=== PATIENT | female | born 1950 | race Caucasian/White ===

== ENCOUNTER → 2017-10-23 14:11 | Outpatient (CLI) | payer MEDICARE, SELFPAY ==
[2017-10-23 16:01] LABS: Absolute Neutrophil Count 4.1 X10^3/uL (2.0-7.7); Basophil# 0.02 X10^3/uL; Basophil% 0.4 % (0-1); Eosinophil# 0.04 X10^3/uL; Eosinophils% 0.7 % (0-5); Hematocrit 39.9 % (37-47); Mean Corp Hgb Conc 32.6 g/gl (32-36); Mean Corpuscular Hgb 30.9 pg (27.0-32.0); Mean Corpuscular Volume 94.8 fL (81-99); Mean Platelet Vol. 10.9 fl (6.2-12.0); Monocyte# 0.37 X10^3/uL; Monocyte% 6.7 % (0-10); Neutrophil # 4.12 X10^3/uL (2.7-7.7); Platelet Count 224 K/mm3 (150-450); RBC Distribution Width CV 13.9 % (11.6-14.6); RBC Distribution Width SD 46.1 fl (35.1-43.9); Red Blood Count 4.21 M/mm3 (4.2-5.4); White Blood Count 5.6 K/mm3 (4.4-11.0)
[2017-10-23 16:04] LABS: POSITIVE COUNT NO; POSITIVE DIFFERENTIAL NO; POSITIVE MORPHOLOGY NO
[2017-10-23 16:19] LABS: ALB/GLOB Ratio 1.2 RATIO (0.9-2.4); AST(SGOT) 17 U/L (15-37); Alanine Aminotransfer ALT/SGPT 24 U/L (13-56); Albumin, Serum 3.9 g/dL (3.2-5.0); Alkaline Phosphatase 71 U/L (45-117); Anion Gap 7 (5-15); BUN 15 mg/dL (7-18); BUN/Creat Ratio 14.7 RATIO (10-20); Calcium,Total 8.8 mg/dL (8.5-10.1); Chloride 104 mmol/L (98-107); Creatinine, Serum 1.02 mg/dL (0.55-1.02); EST Glomerular Filtration Rate 57 mL/min (>60); Est Glom Filt Rate - Afr Amer 69 mL/min (>60); Globulin 3.3 g/dL (2.2-4.2); Glucose 88 mg/dL (74-106); Magnesium 2.5 mg/dL (1.6-2.6); Potassium 4.3 mmol/L (3.5-5.1); Protein, Total 7.2 g/dL (6.4-8.2); Sodium Level 141 mmol/L (136-145); Thyroid Stim Hormone (TSH) 2.71 uIU/mL (0.358-3.74)
== END ==
PROVIDERS: Visit Provider Family Medicine
DX: R06.01 Orthopnea (principal); R00.2 Palpitations; R06.00 Dyspnea, unspecified
CPT/HCPCS: 36415; 80053; 83735; 84443; 85025

== ENCOUNTER → 2017-11-07 08:48 | Outpatient (CLI) | payer MEDICARE, SELFPAY | PROVIDERS: Family Provider Family Medicine; PCP Family Medicine; Visit Provider Family Medicine | DX: R00.2 Palpitations (principal); R06.01 Orthopnea; R06.00 Dyspnea, unspecified | CPT/HCPCS: 93225; 93226 ==

== ENCOUNTER → 2018-02-01 13:30 | Outpatient (CLI) | payer MEDICARE, SELFPAY ==
--- NOTE | 2018-02-01 13:35 | RAD_ITS ---
STUDY: X-RAY CHEST REASON FOR EXAM: Female, 67 years old. Dyspnea. TECHNIQUE: PA and lateral views of the chest. COMPARISON: December 14, 2013 FINDINGS: The lungs are clear and expanded. There is no demonstrated pleural abnormality. Normal size heart. Normal mediastinum and teresa. Normal visualized pulmonary arteries. There is atherosclerotic calcification of the aortic arch. Normal visualized thoracic spine. Normal visualized ribs, clavicles, and shoulders. There is no demonstrated abnormality of the visualized soft tissue structures of the upper abdomen. RAD/Chest PA and Lateral IMPRESSION: No acute cardiopulmonary process. Electronically Signed: Antonella Forrest MD at 16:51 EDT Tel , Service support ,
[2018-02-01 15:42] LABS: Absolute Lymphocyte Count 0.75 X10^3/ul (0.83-4.51); Absolute Neutrophil Count 3.4 X10^3/uL (2.0-7.7); Basophil# 0.02 X10^3/uL; Basophil% 0.4 % (0-1); Eosinophil# 0.04 X10^3/uL; Eosinophils% 0.9 % (0-5); Hematocrit 41.7 % (37-47); Hemoglobin 13.6 g/dl (12.0-15.0); Lymphocyte # 0.75 X10^3/ul (4.0); Lymphocyte % 16.2 % (19-41); Mean Corp Hgb Conc 32.6 g/gl (32-36); Mean Corpuscular Hgb 30.9 pg (27.0-32.0); Mean Corpuscular Volume 94.8 fL (81-99); Mean Platelet Vol. 10.7 fl (6.2-12.0); Monocyte# 0.42 X10^3/uL; Monocyte% 9.1 % (0-10); Neutrophil # 3.38 X10^3/uL (2.7-7.7); Neutrophil % 73.2 % (47-70); Platelet Count 249 K/mm3 (150-450); RBC Distribution Width CV 13.4 % (11.6-14.6); RBC Distribution Width SD 44.8 fl (35.1-43.9); White Blood Count 4.6 K/mm3 (4.4-11.0)
[2018-02-01 15:45] LABS: POSITIVE COUNT NO; POSITIVE DIFFERENTIAL NO; POSITIVE MORPHOLOGY NO
[2018-02-01 16:02] LABS: ALB/GLOB Ratio 1.1 RATIO (0.9-2.4); AST(SGOT) 9 U/L (15-37); Alanine Aminotransfer ALT/SGPT 19 U/L (13-56); Alkaline Phosphatase 73 U/L (45-117); Anion Gap 7 (5-15); BUN 19 mg/dL (7-18); BUN/Creat Ratio 20.2 RATIO (10-20); Calcium,Total 8.8 mg/dL (8.5-10.1); Chloride 106 mmol/L (98-107); Creatinine, Serum 0.94 mg/dL (0.55-1.02); EST Glomerular Filtration Rate 63 mL/min (>60); Est Glom Filt Rate - Afr Amer 76 mL/min (>60); Globulin 3.5 g/dL (2.2-4.2); Glucose 94 mg/dL (74-106); Potassium 3.8 mmol/L (3.5-5.1); Protein, Total 7.5 g/dL (6.4-8.2); Sodium Level 141 mmol/L (136-145)
[2018-02-01 16:39] LABS: D-Dimer Quantitative (DVT/PE) < 0.27 FEU/ug/m (0.27-0.49)
== END ==
PROVIDERS: Family Provider Family Medicine; PCP Family Medicine; Referring Provider Family Medicine; Visit Provider Family Medicine
DX: R06.00 Dyspnea, unspecified (principal); R07.89 Other chest pain
CPT/HCPCS: 36415; 71046; 80053; 84484; 85025; 85379

== ENCOUNTER 2018-02-07 12:21 | Emergency (ER) | payer MEDICARE, SELFPAY ==
[2018-02-07 12:27] VITALS: BP 142/83; PULSE 69; RESP 20; TEMP 36.6; O2SAT 100; BMI 24.7
[2018-02-07 13:03] VITALS: BP 146/89; PULSE 72; RESP 14; O2SAT 100
--- NOTE | 2018-02-07 13:20 | EKG12_ITS ---
Test Reason : CP Blood Pressure : / mmHG Vent. Rate : 078 BPM Atrial Rate : 078 BPM P-R Int : 168 ms QRS Dur : 088 ms QT Int : 394 ms P-R-T Axes : 077 061 072 degrees QTc Int : 449 ms Normal sinus rhythm Normal ECG Confirmed by POOJA GERARD, SKYLAR ([id number]), news videotape editor HIRAM JORDAN ([id number]) on 02/12/2018 3:51:47 PM Referred By: RIANA Confirmed By:SKYLAR PATTON MD
[2018-02-07] MEDS: LORazepam 0.5 MG Tablet PO (13:31)
--- NOTE | 2018-02-07 13:35 | RAD_ITS ---
STUDY: X-RAY CHEST REASON FOR EXAM: Female, 67 years old. Shortness of breath intermittently. Worse with activity. TECHNIQUE: PA and lateral chest COMPARISON: 02/01/2018. FINDINGS: The lungs are clear and expanded. Normal cardiomediastinal silhouette, teresa and pleural margins. No acute osseous or upper abdominal process. Postoperative changes of the right shoulder, rotator cuff anchor screws present. Mild thoracal lumbar scoliosis. Mild thoracic kyphosis. Mild midthoracic disc degeneration. RAD/Chest PA and Lateral IMPRESSION: No acute cardiopulmonary process. Electronically Signed: Anthony Lebron, at 13:51 EDT Tel , Service support ,
[2018-02-07 13:45] LABS: Hematocrit 40.6 % (37-47); Hemoglobin 13.8 g/dl (12.0-15.0); Mean Corpuscular Hgb 31.4 pg (27.0-32.0); Mean Corpuscular Volume 92.5 fL (81-99); Mean Platelet Vol. 10.4 fl (6.2-12.0); Platelet Count 241 K/mm3 (150-450); RBC Distribution Width CV 13.1 % (11.6-14.6); RBC Distribution Width SD 43.2 fl (35.1-43.9); Red Blood Count 4.39 M/mm3 (4.2-5.4); Scan Indicated on CBC? Y/N NO; White Blood Count 6.1 K/mm3 (4.4-11.0)
[2018-02-07 13:56] LABS: Anion Gap 9 (5-15); BUN 15 mg/dL (7-18); BUN/Creat Ratio 17.1 RATIO (10-20); Chloride 108 mmol/L (98-107); Creatinine, Serum 0.88 mg/dL (0.55-1.02); EST Glomerular Filtration Rate 68 mL/min (>60); Est Glom Filt Rate - Afr Amer 82 mL/min (>60); Estimated Creatinine Clearance 47.72 ml/min; Glucose 92 mg/dL (74-106); Potassium 3.7 mmol/L (3.5-5.1); Sodium Level 142 mmol/L (136-145)
[2018-02-07 14:26] VITALS: BP 130/74; PULSE 75; RESP 14; O2SAT 98
--- NOTE | 2018-02-07 14:57 | ED.DCSUM_ITS ---
- ER Visit Summary Date of Service: 02/07/18 Chief Complaint: Shortness of breath History of Present Illness: The patient is a 67 F who states that for the past 2-3 weeks he has had some shortness of breath however it was acutely worse today. She states that she has been sleeping in a chair having difficulty laying back. She states that last she was at her doctor's office and was started on antibiotic as well as a nasal spray for some sinus issues. She is scheduled for a stress test on Monday. states she has very poor sleep and at times she is up hyperventilating and she concurs with that statement stating that time she needs to think about her breathing in order to slow it down. She does admit to having some anxiety and wonders if that is a part of it. Patient also states that she wakes up at night gasping for air. She does state that she is a snorer. Physical Examination: Afebrile vital signs are stable Gen: Well-nourished well-developed Head: Normocephalic atraumatic Eyes: Perrl EOMI ENT: TMs clear no rhinorrhea moist mucous membranes Neck: Supple no lymphadenopathy no JVD nontender CVS: Regular rate rhythm no murmurs normal S1-S2 Respiratory: No distress clear to auscultation bilaterally chest nontender Abdomen: Soft nontender nondistended normal bowel sounds no masses Back: Nontender Extremity: Nontender no edema Skin: Normal color no rash Neuro: alert orientated ?3 CN II-XII intact normal strength sensation reflexes gait cerebellar Psych: Anxious affect Test Results: EKG shows a normal sinus rhythm at a rate of 78. CBC BMP troponin essentially negative. Emergency Department Course and Treatment: Patient received a oral dose of Ativan and states that dyspnea is improved. She has stress test approved and scheduled for Monday. She may also benefit from sleep study. I will write for a few Ativan to carry her from now until her next doctor's appointment. Impression: 1. Dyspnea 2. Anxiety This note was generated with [employer] dictation software. It may contain incorrect words, spelling, and punctuation that were not noted in review of the chart prior to signing ED Disposition - Plan for ED Patient: Disposition: Home or Assisted Living Chief Complaint: Shortness of Breath Instructions: What Are Snoring and Sleep Apnea?, ED Dyspnea Shortness of Breath Prescriptions: Lorazepam [Ativan] 0.5 mg PO BID PRN PRN 7 Days #14 tab PRN Reason: Anxiety Referrals: Aakash Matt [Primary Care Provider] - As soon as possible Additional Instructions: Keep your stress test appointment on Monday
[2018-02-07 15:15] LABS: D-Dimer Quantitative (DVT/PE) < 0.27 FEU/ug/m (0.27-0.49)
[2018-02-07 15:28] VITALS: BP 135/70; PULSE 75; RESP 14; O2SAT 98
[2018-02-07 15:46] VITALS: BP 128/75; PULSE 80; RESP 14; O2SAT 98
--- NOTE | 2018-02-08 10:12 | CM.ED ---
ED CALLBACK: Follow-up call placed to patient. No answer. Voicemail left with return contact information.
== END 2018-02-07 15:53 | disposition home or self-care (01) ==
PROVIDERS: Emergency Provider Emergency Medicine; Family Provider Family Medicine; PCP Family Medicine
DX: R06.02 Shortness of breath (principal); R06.00 Dyspnea, unspecified; F41.9 Anxiety disorder, unspecified
CPT/HCPCS: 71046; 80048; 84484; 85027; 85379; 93005; 99285; A4216

== ENCOUNTER → 2018-02-09 06:49 | Outpatient (CLI) | payer MEDICARE, SELFPAY ==
--- NOTE | 2018-02-09 11:08 | STRESSREP ---
Stress Test Report Exercise myocardial perfusion stress test. 67-year-old lady with a history of chest pain. Stress protocol. Resting EKG demonstrates normal sinus rhythm with rate of 68 beats minute normal intervals and noted resting blood pressure 120/78 mmHg. The patient exercised according to regular Александр protocol for total duration of 7 minutes and 16 seconds. The maximum heart rate attained was 153 bpm which was 101% maximum predicted heart rate the maximum workload was 8.9 metabolic equivalents. At rest there were no ST or T wave changes noted suggest ischemia peak exercise upsloping ST changes only were noted with no meet the criteria for ischemia. The resting blood pressure 124/70 with a peak blood pressure 144/74. No clinical angina was noted moderate dyspnea was noted. Myocardial perfusion protocol. 11.3 mCi of technetium 99m sestamibi was injected at rest. Patient exercised according to regular Александр protocol for 7 minutes and 16 seconds. At peak exercise 32.4 mCi of technetium 99m sestamibi was injected stress images were obtained stress and rest images were reconstructed and compared in the short axis vertical long horizontal long axis. Gated images were also obtained Perfusion SPECT analysis: Review of the stress images demonstrate normal uptake of tracer noted in all areas of the myocardium. The resting images similarly demonstrate normal uptake of tracer noted in all areas of the myocardium. No areas of reversibility are noted suggest ischemia. No previous infarct is noted. Gated SPECT analysis. The gated ejection fraction is noted to be 77%. Conclusion: Normal exercise myocardial perfusion stress test at a moderate workload. No clinical angina noted. Preserved ejection fraction.
== END ==
PROVIDERS: Family Provider Family Medicine; PCP Family Medicine; Referring Provider Family Medicine; Visit Provider Family Medicine
DX: R06.00 Dyspnea, unspecified (principal); R07.89 Other chest pain
CPT/HCPCS: 78452; 93017; A9500; A4216; J2785

== ENCOUNTER → 2018-04-02 10:14 | Outpatient (CLI) | payer MEDICARE, SELFPAY ==
--- NOTE | 2018-04-02 10:21 | US_ITS ---
STUDY: ABDOMINAL ULTRASOUND REASON FOR EXAM: Female, 67 years old. Abdominal discomfort TECHNIQUE: Transabdominal ultrasound was performed with real-time and static ford scale imaging. TECHNICAL QUALITY: Adequate. COMPARISON: None. FINDINGS: Liver: The liver measures 13.2 cm. There is normal echogenicity of the liver. The bile ducts are within normal limits. There is hepatic color flow. The direction of portal flow is hepatopetal. There is a hyperechoic 2 cm likely hemangioma Portal vein measurement: Gallbladder: Normal distended gallbladder. The gallbladder wall measures 2.3 mm. There is a negative sonographic Mcmillan's sign. There is no pericholecystic fluid. There are no gallstones. Common Bile Duct (C.B.D.): The common bile duct measures 2.5 mm. Pancreas: Normal size of the head, body and tail of the pancreas. There is normal echogenicity of the pancreas. There is no demonstrated pancreatic mass or cyst. Spleen: Normal size of the spleen. The spleen measures 10.0 cm. Right Kidney: Normal size of the right kidney. The right kidney measures 9.3 x 4.7 x 4.0 cm. Normal renal cortex. The right cortex measures 1.3 cm. There is no demonstrated renal mass or cyst. There is no right hydronephrosis. Left Kidney: Normal size of the left kidney. The left kidney measures 9.9 x 4.8 x 5.2 cm. Normal renal cortex. The left cortex measures 1.9 cm. 2 simple cysts measuring up to 2.5 cm in greatest dimension. There is either mild left hydronephrosis or parapelvic cyst. Aorta: Tapers normally, atherosclerotic plaque noted. I.V.C.: The IVC is patent. There is no ascites. US/Abdomen Complete IMPRESSION: 2 cm hyperechoic nodule within the liver, likely hemangioma. Mild left hydronephrosis versus parapelvic cyst Simple left renal cysts Sonographically normal gallbladder Electronically Signed: Franky Pimentel MD at 13:00 EST , Service support ,
--- OUTSIDE RECORDS SUMMARY | 2018-05-26 15:10 | XMS RPT_ITS ---
:1950 Author Organization OHIP Care Team Providers Name Role Phone MARCUS CONRAD Referring Unavailable MARCUS CONRAD Attending Unavailable MARCUS CONRAD Referring Unavailable RADHA CURRIE Admitting Unavailable RADHA CURRIE Attending Unavailable MARCUS CONRAD Referring Unavailable Aakash Matt Attending Unavailable Aakash Matt Attending Unavailable Aakash Matt Referring Unavailable Aakash Matt Primary Care Unavailable Chaz Charles Attending Unavailable Aakash Matt Attending Unavailable Aakash Matt Referring Unavailable Aakash Matt Primary Care Unavailable Aakash Matt Primary Care Unavailable Chris Gonsalez Attending Unavailable Aakash Matt Attending Unavailable Aakash Matt Referring Unavailable Shaka Aakash Primary Care Unavailable Melvin, Chaz Attending Unavailable Aakash Matt Referring Unavailable ShakaAakash eldridge Attending Unavailable Shaka, Aakash Referring Unavailable Shaka, Aakash Primary Care Unavailable PROBLEMS PROBLEMS DATE TYPE CONDITION / CODE ATTENDING STATUS SOURCE 04/18/2018 Active Encounter for RADHA CURRIE Active [facility] screening for [facility] malignant neoplasm Repository of colon / Z12.11(ICD-10) 03/01/2018 Unknown R06.09 - Other Melvin, Chaz Active [facility] forms of dyspnea / Community R06.09(ICD-10) Hospital Repository 02/07/2018 Unknown F41.9 - [place] [facility] disorder, [facility] unspecified / Hospital F41.9(ICD-10) Repository 02/01/2018 Unknown R06.00 - Dyspnea, Aakash Matt Active [facility] unspecified / Community R06.00(ICD-10) Hospital Repository 02/01/2018 Unknown R07.89 - Other Aakash Matt Active [place] chest pain / Community R07.89(ICD-10) Hospital Repository 01/16/2018 Active Encounter for NA Active [facility] screening [facility] mammogram for Repository malignant neoplasm of breast / Z12.31(ICD-10) 01/19/2018 Unknown R00.2 - Aakash Matt Active [facility] Palpitations / Community R00.2(ICD-10) Hospital Repository 10/24/2017 Unknown R06.01 - Orthopnea Aaaksh Matt Active [facility] / R06.01(ICD-10) [facility] Hospital Repository PROCEDURES PROCEDURES No Procedure Records FoundRESULTS RESULTS NURSING PROG Observed: 04/18/2018 Status: COMPLETED Source: [place] 9:14 AM [facility] REPOSITORY HNO ID: [id number] Author: Flower Palacios RN Service: (none) Author Type: Registered Nurse Type: Nursing Progress Note Filed: 04/18/2018 9:14 AM Note Text: Patient did not experience a fall prior to discharge. Patient did not experience a burn prior to discharge. Flower Palacios RN NURSING PROG Observed: 04/18/2018 Status: COMPLETED Source: [place] 9:07 AM [facility] REPOSITORY HNO ID: [id number] Author: Crystal (Rn) Pelfrey, RN Service: (none) Author Type: Registered Nurse Type: Nursing Progress Note Filed: 04/18/2018 9:08 AM Note Text: Patient now tolerating snack without problems. Flower Palacios RN PT ED Observed: 04/18/2018 Status: COMPLETED Source: [place] 9:00 AM [facility] REPOSITORY HNO ID: [id number] Author: Flower Palacios RN Service: (none) Author Type: Registered Nurse Type: Patient Education Filed: 04/18/2018 9:00 AM Note Text: POST OP LEARNING RESPONSE INSTRUCTION PROVIDED TO: Patient and Spouse METHOD OF INSTRUCTION: Individual instruction Written instruction - handouts Verbal instruction PATIENT / FAMILY RESPONSE: Verbalizes understanding of: EQUIPMENT USE-Correct use of Equipment MEDICAL REGIMEN-Importance of following prescribed medical regimen PAIN MANAGEMENT-Effective strategies to manage pain in addition to pain medication PHYSICAL RESTRICTIONS-Physical restrictions and recommendations after discharge from the hospital POST-PROCEDURE INSTRUCTIONS-Correct actions to take to reduce post procedure complications PATIENT SAFETY PRINCIPLES SYMPTOM MANAGEMENT-Correct actions to take to manage symptoms associated with his/her disease/illness WORSENING CONDITION-Signs and symptoms of a worsening condition that warrant a call to the physician FOLLOW-UP PLAN: Patient instructed to call with any further issues Follow up phone call. Contact information given. SUPPLEMENTAL MATERIAL: AVS REFERRAL (RECOMMENDATION): None Electronically Signed By: Flower Palacios RN In Department: AMBULATORY SURGERY NURSING PROG Observed: 04/18/2018 Status: COMPLETED Source: [place] 8:59 AM [facility] REPOSITORY HNO ID: [id number] Author: Flower Palacios RN Service: (none) Author Type: Registered Nurse Type: Nursing Progress Note Filed: 04/18/2018 8:59 AM Note Text: Patient sitting up in bed tolerating drink without problems. Flower Palacios RN NURSING PROG Observed: 04/18/2018 Status: COMPLETED Source: [place] 8:31 AM [facility] REPOSITORY HNO ID: [id number] Author: Flower Palacios RN Service: (none) Author Type: Registered Nurse Type: Nursing Progress Note Filed: 04/18/2018 8:36 AM Note Text: Patient arrived to PACU, on left side, abdomen soft. Patient resting comfortably. Flower Palacios RN NURSING PROG Observed: 04/18/2018 Status: COMPLETED Source: [place] 8:28 AM [facility] REPOSITORY HNO ID: [id number] Author: Dede Perez RN Service: Nursing Author Type: Registered Nurse Type: Nursing Progress Note Filed: 04/18/2018 8:28 AM Note Text: Patient did not experience a fall within the Intraoperative area. Patient did not experience a burn within the Intraoperative area. Dede Perez RN NURSING PROG Observed: 04/18/2018 Status: COMPLETED Source: [place] 8:01 AM [facility] REPOSITORY HNO ID: [id number] Author: Flower SmithRnDebra Palacios RN Service: (none) Author Type: Registered Nurse Type: Nursing Progress Note Filed: 04/18/2018 8:01 AM Note Text: Patient did not experience a fall within the Preoperative area. Patient did not experience a burn within the Preoperative area. [facility] PRE-OP NURSING HAND OFF NOTE SBAR Hand off given to Dede Perez RN. Hand off was communicated verbally and at the patient's bedside and all questions were answered. LATRICIA Peñaloza RN PT ED Observed: 04/18/2018 Status: COMPLETED Source: [place] 7:47 AM [facility] REPOSITORY HNO ID: [id number] Author: Flower SmithRnDebra Palacios RN Service: (none) Author Type: Registered Nurse Type: Patient Education Filed: 04/18/2018 7:49 AM Note Text: PRE OP LEARNING ASSESSMENT PROCEDURE/SURGERY: GI PROCEDURES: Colonoscopy READINESS TO LEARN COGNITIVE ABILITY: Alert and oriented MOTIVATION TO LEARN: Eager Interested FAMILY SUPPORT: High - Very involved in pt care PATIENT LEARNS BEST BY: Individual Instruction Written Instruction - Hand-outs Verbal Instruction Multiple Methods FACTORS AFFECTING LEARNING: None PHYSICAL LIMITATIONS AFFECTING LEARNING: None Electronically Signed By: Flower Palacios RN In Department: AMBULATORY SURGERY HISTORY PHYSICAL Observed: 04/17/2018 Status: COMPLETED Source: [place] 8:45 PM [facility] REPOSITORY HNO ID: [id number] Author: Radha Currie Service: (none) Author Type: Physician Type: HANDP Filed: 04/18/2018 7:53 AM Note Text: HISTORY AND PHYSICAL ? Cindy Sosa 1950 ? ? CHIEF COMPLAINT: personal history of colon polyps, family history of colon cancer ? HPI: 67 y/o WF s/p colonoscopy in 2013 presents for follow up surveillance colonoscopy for family history of colon cancer and personal history of colon polyps. Father of colon cancer at age 86. No other family members with colon cancer. Denies blood in stools. Denies changes in bowel habits. Denies abdominal pain. ? ? PAST MEDICAL HISTORY Disorder of Bone and Cartilage, Unspecified Benign Neoplasm of Colon Family History of Malignant Neoplasm of Gastrointestinal Tract ? ? PAST SURGICAL HISTORY Total Abdom Hysterectomy Past Surgical History of (FOOT SURGERY, Both) DANDc, Diag and/Or Therapeutic (Dilation AND curettage) Colonoscop W/ Or W/O [facility] Spec - 08/17/07 (Colonoscopy) ? ? Current outpatient prescriptions:nitrofurantoin monhydrate and macrocrystal (MACROBID) 100 mg capsule, Take 1 capsule by mouth. Take one by mouth after coitus., Disp: 30 capsule, Rfl: 1; peg 3350-Electrolytes 236-22.74-6.74 gram suspension, Take 4,000 mL by mouth one time only for 1 dose. Refer to printed prep instructions from your doctor., Disp: 1 Bottle, Rfl: 0 ? ALLERGIES: Bactrim ? 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 Tobacco Use: Never Alcohol Use: Yes (Occasionally) Drug Use: No Sexual Activity: Patient is sexually active, with male partner(s). No reported control method. ?? FAMILY HISTORY Mother: Heart (TRIPLE BYPASS), Osteoporosis, other (Dementia) Father: Colon Cancer, Heart Other: Breast Cancer (MATERNAL COUSIN) ? ? REVIEW OF SYMPTOMS: General: The patient denies fatigue, denies weight loss, denies weight gain, denies feeling hot, and denies feelings of cold. Eyes: The patient denies glaucoma, denies eye injury/surgery, wears glasses or contacts. Ear/Nose/Throat: The patient denies allergies, denies hayfever, denies ear infections, and denies bloody noses. Cardiovascular: The patie nt denies chest pain, denies heart disease, denies high blood pressure, denies high cholesterol, and denies poor circulation. Respiratory: The patient denies tuberculosis, denies pneumonia, denies frequent cough, denies shortness of breath, and denies coughing up blood. Gastrointestinal: The patient denies difficulty swallowing, denies acid reflux, denies ulcers, denies jaundice/hepatitis, denies gallbladder problems, jocelyn es vomiting, denies black or tarry stools, denies hemorrhoids, denies bleeding from rectum, denies diverticulitis, denies constipation, denies diarrhea, denies loss of stool control, and denies hernias. Kidney/Bladder: The patient denies kidney stones, notes urine infections, and denies bloody urine. Skin: The patient denies a history of skin cancer, denies bleeding/changing moles, and denies a history of skin rash. Neurologic: The patient denies a history of epilepsy/convulsions, denies headaches, denies head/spinal injuries, and denies stroke/TIA. Psychiatric: The patient denies psychiatric medications, denies depression, and denies voices. Endocrine: The patient denies thyroid disorders, denies diabetes, and notes hormonal problems. Hematologic: The patient denies a history of bruising, denies bleeding, and denies anemia. Infections: The patient notes a history of measles and mumps, notes rheumatic fever, and denies sexually transmitted diseases. Musculoskeletal: The patient denies back pain/injury, denies back problems, denies sciatica, notes knee/foot trouble, denies arthritis, or denies gout. ? PHYSICAL EXAMINATION: ?General: The patient is 62 year old female, well nourished, well hydrated in no acute distress. The patient is oriented to time, place, and person. ?VITALS: Blood pressure 122/70, pulse 60, height 157.5 cm (5' 2), weight 61.236 kg (135 lb). Body mass index is 24.69 kg/(m2). ?HEENT: Normal cephalic, ataumatic, pupils are equally round, sclera are anicteric, mucous membranes are moist, oropharynx is clear. Neck has no masses, asymmetry or lymphadenopathy. Thyroid is unremarkable. ?Respiratory: Clear to auscultation and percussion. Normal respiratory excursion and pattern. ?Cardiac: Examination is regular rate and rhythm. ?Abdominal exam: Soft, nontender, with no palpable masses. No hepatosplenomegaly. No palpable hernias. ?Rectal exam: exam deferred ?Extremities: no clubbing, cyanosis or edema. No adenopathy. ?? Impression: personal history of colon polyps, family history of colon cancer Discussion/Plan/Recommendations: I have discussed the above with the patient. I have offered colonoscopy I have explained the procedure to the patient. I have counseled the patient as to the risks of the procedure, including but not limited to: infection, bleeding, injury to any intrabdominal organs such as liver/spleen, perforation of the GI tract, inability to complete the procedure, complications of anesthesia, etc. ? the patient understands. The patient wishes to proceed. I have answered all questions to the patient?s satisfaction and the patient has no further questions. PROGRESS Observed: 04/09/2018 Status: COMPLETED Source: [place] 12:29 PM [facility] REPOSITORY HNO ID: [id number] Author: Shruthi Thomas Service: (none) Author Type: (none) Type: Progress Notes Filed: 04/09/2018 12:29 PM Note Text: Scheduled patient for open access Colonoscopy with Dr. Currie on 04/18/2018, mailing colonoscopy instructions Shruthi Thomas HOSP Observed: 04/09/2018 Status: COMPLETED Source: [place] 12:00 AM [facility] REPOSITORY Patient:Cindy Sosa MRN: <[id number]> Height:5' 2.205(1.58 m) Weight:130 lb 15.3 oz (59.4 kg) Outpatient Medications as of 04/18/18: nitrofurantoin monhydrate and macrocrystal (MACROBID) 100 mg capsule Admission/Clinic Administered Medications as of 04/18/18: lactated ringers infusion Problem List: Family history of malignant neoplasm of gastrointestinal tract [Z80.0] Osteopenia [M85.80] Recurrent UTI [N39.0] Personal history of colonic polyps [Z86.010] Family history of colon cancer [Z80.0] Plantar fasciitis [M72.2] Allergies: Bactrim [Sulfamethoxazole-Trimethoprim] Hydrocodone Date Verified: 04/18/18 Lab Values No results within the last 30 days for the following basenames: K,HCT Progress Notes (AMMONIA TECHNICIAN [facility]): Tesas Portillo Ma 04/06/2018 9:04 AM Signed 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 Marcus Kaye MD 04/06/2018 9:04 AM Signed Cindy Sosa is a 67 year old who presents for her annual gynecologic exam without complaints. Being work up by PCP for breathing difficulty and bloating. Postmenopausal: Yes FREDERICK/BSO HRT use: after hysterectomy- not currently History of abnormal pap: No Last mammogram: 2017 normal History of abnormal mammogram: No Sexually active: Yes History of STDS: None Patient concerns for STD exposure: No. Pain with intercourse: No Postcoital bleeding: No Hot flashes: No Night sweats: No Vaginal dryness: Yes Exercise: walking Diet: balanced Obstetric History T0 L0 SAB1 TAB0 Ectopic0 Multiple0 Live Births0 Comment: Pt has one adopted child. PAST MEDICAL HISTORY Diagnosis Date - Benign neoplasm of colon - Disorder of bone and cartilage, unspecified - Family history of malignant neoplasm of gastrointestinal tract PAST SURGICAL HISTORY Procedure Laterality Date - COLONOSCOP W/ OR W/O [facility] SPEC 08/17/07; 10/2012 Colonoscopy - DANDC, DIAG AND/OR THERAPEUTIC Dilation AND curettage - PAST SURGICAL HISTORY OF FOOT SURGERY, Both - ROTATOR CUFF REPAIR - TOTAL ABDOM HYSTERECTOMY FAMILY HISTORY Problem Relation Age of Onset - Heart Mother TRIPLE BYPASS - Osteoporosis Mother - other (Dementia) Mother - Colon Cancer Father - Heart Father - Breast Cancer Other MATERNAL COUSIN SOCIAL HISTORY Social History Substance Use Topics - Smoking status: Never Smoker - Smokeless tobacco: Never Used - Alcohol use Yes Comment: Occasionally REVIEW OF SYSTEMS Abdomen: bloating and slight early satiety - no weight loss Bladder: No dysuria, gross hematuria, urinary frequency, urinary urgency, or incontinence Breast: No breast lumps, nipple d/c, overlying skin changes, redness or skin retraction Allergies and current medication updated:Yes EXAM: BP 106/64 Ht 5' 2.205 (1.58m) Wt 131 lb (59.4kg) BMI 23.80 kg/(m2). GENERAL: pleasant, female in no apparent distress HEENT: Normocephalic, atraumatic, mucus membranes moist and no lesions NECK: Supple, full range of motion, no adenopathy and thyroid normal DERMATOLOGY: Normal, without lesions, non-icteric and non-hirsute BREAST: soft, non-tender, symmetric, no dominant mass, normal nipple-areolar complex, no lymphadenopathy and no nipple discharge ABDOMEN: soft, non-tender and no masses PELVIC: external genitalia normal, normal Bartholin's glands, urethra, [place]'s glands, no vulvar lesions, good vaginal support, physiologic discharge present, normal appearing perineal body and perianal region, atrophic changes BIMANUAL: no adnexal masses, non-tender and uterus surgically absent RECTOVAGINAL: deferred. NEURO: alert and oriented x3,exam grossly non-focal EXTREMITIES: normal ASSESSMENT/PLAN: 1) Health maintenance: Pap/HPV screening no longer needed Mammogram ordered Mammogram up to date Nutrition, exercise and routine health maintenance exams reviewed. Calcium/Vitamin D supplementation information provided. Colon cancer screening: colonoscopy ordered BMD: up to date 2) Follow up one year or sooner as needed MD Marcus Hernandez MD 04/06/2018 8:53 AM Addendum Calcium and Vitamin D Supplementation (from the National Institutes of Health Office of Dietary Supplements 2010) Calcium is required by the body for blood vessel, muscle, hormone and nerve functioning. Most of the body's calcium is stored in the bones and teeth where it supports structure and function. Bone is continuously broken down and reformed. When bone breakdown exceeds formation, especially in postmenopausal women, bone loss can increase the risk of osteoporosis and fractures. In addition to low calcium intake, women who smoke, have a family history of osteoporosis, are thin, or , or who take certain medications such as cancer chemotherapy, seizure mediations and steroids are at increased risk of osteoporosis. The calcium requirements in women change with age. The National Institutes of Health (NIH) recommends: 1000mg elemental calcium for premenopausal women age 19-50 1200mg elemental calcium for postmenopausal women and all women over 50 Milk, yogurt, and cheese are rich natural sources of calcium and are the major food contributors in the [place]. For example, 8oz of milk (whole, lowfat or skim) contains about 300mg calcium, 8oz of yogurt contains 415mg. Nondairy sources include salmon and sardines and vegetables, such as [place] cabbage, kale, and broccoli. Foods fortified with calcium include many fruit juices, tofu and cereals. For more food calcium content information, visit http://ods.od.nih.gov/factsheets/calcium. Calcium supplements come in several different forms. Remember that the recommendations are for millgrams (mg) of elemental calcium which may be less than the total weight of the supplement. The amount of elemental calcium is required to be printed on the label. Calcium carbonate is the least expensive form. It must be taken on a full stomach to be properly absorbed. Some patients may experience gas or constipation. Calcium phosphate and calcium citrate may be taken either with or without food and tend to have less side effects but are generally more expensive. Because of its ability to neutralize stomach acid, calcium carbonate is found in some gexj-fla-veofncp antacid products, such as Tums? and Rolaids?. Depending on its strength, each chewable pill or softchew provides 200 to 400 mg of elemental calcium. The percentage of calcium absorbed depends on the total amount of elemental calcium consumed at one time. Absorption is highest in doses <500mg. So a woman who takes 1,000mg/day of calcium from supplements should split the dose and take 500mg at two separate times during the day. Too much calcium can cause kidney stones, constipation, difficulty absorbing other nutrients and calcium buildup in blood vessels. Women under 50 should not exceed 2500mg/day (2000mg/day for women over 50) of calcium from food and supplements. Excessive alcohol and caffeine intake can inhibit absorption of calcium. Calcium can reduce the absorption of some medications if taken at the same time of day (bisphosphonates, thyroid medication, Phenytoin and other seizure medications, some antibiotics and iron supplements). Vitamin D promotes calcium absorption in the gut and maintains adequate blood levels of calcium and phosphate for normal bone growth and bone remodeling. Vitamin D also helps regulate cell growth as well as nerve, muscle and immune system function. Vitamin D is produced in the skin as a result of ultraviolet sunlight rays and must be altered in the liver and kidney to become its active form. Recommended intake according to the National Institutes of Health is 600 International Units (IU) for girls and women ages 1-70 and 800 IU for women over 70. Very few foods in nature contain vitamin D. The flesh of fatty fish (such as salmon, tuna, and mackerel) and fish liver oils are among the best sources. Small amounts of vitamin D are found in beef liver, cheese, mushrooms and egg yolks. Most people meet at least some of their vitamin D needs through exposure to sunlight. Season, time of day, length of day, cloud cover, smog, skin melanin content, and sunscreen are among the factors that affect UV radiation exposure and vitamin D synthesis. Despite the importance of the sun for vitamin D synthesis, it is prudent to limit exposure of skin to sunlight and avoid tanning beds. UV radiation is a carcinogen responsible for most of the estimated 1.5 million skin cancers that occur annually in the [place]. Lifetime cumulative UV damage to skin is also responsible for some age-associated dryness and other cosmetic changes. In supplements and fortified foods, vitamin D is available in two forms, D2 (ergocalciferol) and D3 (cholecalciferol). The two are equivalent at normal supplement doses. For women who require high supplement doses because of vitamin D deficiency, D3 may work better to raise blood levels. Some medications can prevent proper absorption of Vitamin D. These include laxatives, corticosteroids like prednisone, the seizure drugs phenobarbital and phenytoin, the weight-loss drug orlistat ( Xenical? and AlliTM) and the cholesterol-lowering drug cholestyramine (Questran?, LoCholest?, and Prevalite?). Talk to your doctor about adjusting your recommended daily vitamin D dosage if you take these medications. You should not exceed 4000 mg of vitamin D supplementation daily unless specifically prescribed by your doctor. ACOG Screening Guidelines (2015) The following health screening schedule is recommended by the [place] [employer]ne[employer] (ACOG). Some of these tests may be ordered or performed by your primary care doctor. Pap test screening The pap test looks at cells on the cervix (the opening from the vagina to the uterus) to look for cancer or pre-cancerous changes. These changes are caused by the human papillomavirus (HPV). Studies estimate that half of all women will test positive for this virus within 3 years of starting sexual activity. For young women with a normal immune system, 90% of HPV infections will resolve within 2 years. There is a vaccine available against some forms of HPV. This is recommended for girls and women age 9-26 and is a series of 3 injections over 6 months. Because this vaccine does not protect against all HPV types which can cause cervical cancer, women who received the vaccine still need pap tests. Pap smear screening should be started at age 21. The pap test should be done every 3 years from age 21-29. From age 30-65, pap smears can be done every 5 years if HPV test is negative or every 3 years if HPV testing is not done. For women over the age of 65, ACOG recommends against screening women who have had adequate prior screening and are not otherwise at high risk for cervical cancer. Women who have had a hysterectomy also do not need routine pap smear screening unless the pap smear was done for a cervical cancer or moderate to severe dysplasia. Breast cancer screening Mammogram should be performed every 1-2 years starting at age 40 and every year starting at age 50. Screening may be started earlier depending on family history. Cholesterol screening Lipid panel (cholesterol test) should be checked every 5 years starting at age 45. Diabetes screening Fasting glucose (blood sugar) test should be performed every 3 years starting at age 45. Colorectal cancer screening Starting at age 50, women should have a screening colonoscopy at least every 10 years. Screening may be started earlier depending on family history. Thyroid screening Thyroid function test (TSH) should be checked every 5 years starting at age 50. Bone mineral density screening All postmenopausal women age 65 and over and postmenopausal women with risk factors for osteoporosis should have a bone mineral density test performed. Risk factors include race, family history of osteoporosis, personal history of fractures, poor nutrition, smoking, heavy alcohol use, early menopause, low calcium intake and low body weight. Certain medical conditions and long-term use of some medications may also increase risk. Health Information For Patients and the Community How to Prepare for Your Colonoscopy Using Golytely, Nulytely, Trilyte or Colyte Preparations IMPORTANT - Please Read These Instructions at Least 2 Weeks Before Your Colonoscopy [place] Instructions: ?Your bowel must be empty so that your doctor can clearly view your colon. Follow all of the instructions in this handout EXACTLY as they are written. If you do NOT follow the directions for when to start drinking the bowel preparation (see next page), your colonoscopy WILL be cancelled. ?Do NOT eat any solid food the ENTIRE day before your colonoscopy. ?Buy your bowel preparation at least 5 days before your colonoscopy. ?Do NOT mix the solution until the day before your colonoscopy. Designated Squaring Shear Operator on the Day of Your Exam A responsible family member or friend MUST come with you to your colonoscopy and REMAIN in the endoscopy area until you are discharged! You are NOT ALLOWED to drive, take a taxi or bus, or leave the Endoscopy Center ALONE. If you do not have a responsible show horse driver (family member or friend) with you to take you home, your exam cannot be done with sedation and will be cancelled. Medications Some of the medicines you take may need to be stopped or adjusted before your colonoscopy. You MUST call the doctor who ordered any of the following medicines at least 2 weeks before your colonoscopy. ?Blood thinners -- such as Coumadin? (warfarin), Plavix? (clopidogrel), Ticlid? (ticlopidine hydrochloride), Agrylin? (anagrelide), Xarelto? (Rivaroxaban), Pradaxa? (Dabigatran), Eliquis? (Apixaban), and Effient? (Prasugrel). ?Insulin or diabetes pills. Please call the doctor that monitors your glucose levels. Your insulin dosage may need to be adjusted due to the diet restrictions required with this bowel preparation. (Please bring your diabetes medicines with you on the day of your procedure.) If you take aspirin, take it and ALL other medications prescribed by your doctor. On the day of your colonoscopy, take your medications with a sip of water. Revised 06/2016 1 Five (5) Days Before Your Colonoscopy ?Do NOT take medicines that stop diarrhea -- such as Imodium?, Kaopectate?, or Pepto Bismol?. ?Do NOT take fiber supplements -- such as Metamucil?, Citrucel?, or Perdiem?. ?Do NOT take products that contain iron -- such as multi-vitamins -- (the label lists what is in the products). ?Do NOT take vitamin E. Buy the prescription bowel preparation solution at your local pharmacy or drugstore pharmacy. Three (3) Days Before Your Colonoscopy Do NOT eat high-fiber foods -- such as popcorn, beans, seeds (flax, sunflower, quinoa), multigrain bread, nuts, salad/vegetables, or fresh and dried fruit. One (1) Day Before Your Colonoscopy Only drink clear liquids the ENTIRE DAY before your colonoscopy. Do NOT eat any solid foods. Drink at least 8 ounces of clear liquids every hour after waking up. The clear liquids you can drink include: ?water, apple, or white grape juice; broth; coffee or tea (without milk or creamer); clear carbonated beverages such as pablo leobardo or lemon-mescalero apache soda; Gatorade? or other sports drinks (not red); Ramesh-Aid? or other flavored drinks (not red). You may eat plain jello or other gelatins (not red) or popsicles (not red). Do NOT drink alcohol on the day before or the day of the procedure. 2 Revised 06/2016 When to Mix and Drink Your Bowel Prep Follow the instructions on the label. After mixing, place the solution in the refrigerator for a couple of hours before drinking. You may add the flavor packet that came with the bowel preparation. DO NOT add ice, sugar or any flavorings to the solution. Evening Before Your Colonoscopy ?Start drinking the bowel preparation at 6 PM the evening before your colonoscopy. Drink an 8-oz glass of bowel preparation every 10 minutes. You must finish drinking the solution by 9 PM the night before your scheduled procedure. ?You may continue to drink clear liquids only until midnight. Do NOT eat or drink ANYTHING after midnight the night before your procedure or your procedure may be cancelled. This is for your safety and will reduce the risk of having any food or liquid in your stomach move into your lungs (aspiration) during a procedure. If you take aspirin, take it and ALL other prescribed medicines with a sip of water on the day of your colonoscopy. Contact Information: If you are unable to keep your appointment or have any questions about the instructions, please call the facility where the procedure is being performed. Call between the hours of 8:00 AM and 5:00 PM. If you are calling after 5:00 PM, please call Nurse purification operator helper at [phone]. [facility] [address] [place] [address] [id number] Index # [id number] Revised 06/2016 3 Colonoscopy Procedure Overview Please Read Prior to the Procedure What is a Colonoscopy A colonoscopy is an outpatient procedure in which the inside of the large intestine (colon and rectum) is examined. A colonoscopy is commonly used to evaluate gastrointestinal symptoms, such as rectal and intestinal bleeding, abdominal pain, or changes in bowel habits. Colonoscopies are also performed in individuals without symptoms to check for colorectal polyps or cancer. A screening colonoscopy is recommended for anyone 50 years of age and older, and for anyone with parents, siblings or children with a history of colorectal cancer or polyps. What Happens Before a Colonoscopy To have a successful colonoscopy, your bowel must be empty so that your physician can clearly view the colon. To do this, it is very important to read and follow all of the instructions given to you at least 2 weeks BEFORE your exam. If your bowel is not empty, your colonoscopy will not be successful and may have to be repeated. If you feel nauseated or vomit while taking the bowel preparation, wait 30 minutes before drinking more fluid and start with small sips of solution. Some activity (such as walking) or a few soda crackers may help decrease the nausea you are feeling. If the nausea persists, please contact nurse stone hand at [phone]. You may experience skin irritation around the anus due to the passage of liquid stools. To prevent and treat skin irritation, you should: ?Apply Vaseline? or Desitin? ointment to the skin around the anus before drinking the bowel preparation medications. These products can be purchased at any [employer]. ?Wipe the skin after each bowel movement with disposable wet wipes instead of toilet paper. These are found in the toilet paper area of the store. ?Sit in a bathtub filled with warm water for 10 to 15 minutes after you finish passing a stool; after soaking, blot the skin dry with a soft cloth, apply Vaseline? or Desitin? ointment to the anal area, and place a cotton ball just outside your anus to absorb leaking fluid. What Happens During a Colonoscopy During a colonoscopy, an experienced physician uses a colonoscope (a long, flexible instrument about 1/2 inch in diameter) to view the lining of the colon. The colonoscope is inserted into the rectum and advanced through the large intestine. If necessary during a colonoscopy, small amounts of tissue can be removed for analysis (a biopsy) and polyps can be identified and entirely removed. In many cases, a colonoscopy allows accurate diagnosis and treatment of colorectal problems without the need for a major operation. Revised 06/2016 5 ?You are asked to wear a hospital gown and an IV will be started. ?You are given a pain reliever and a sedative intravenously (in your vein). You will feel relaxed and somewhat drowsy. ?You will lie on your left side, with your knees drawn up towards your chest. ?A small amount of air is used to expand the colon so the physician can see the colon romano. ?You may feel mild cramping during the procedure. Cramping can be reduced by taking slow, deep breaths. ?The colonoscope is slowly withdrawn while the lining of your bowel is carefully examined. ?The procedure lasts from 30 minutes to 1 hour. What Happens After a Colonoscopy ?You will stay in a recovery room for observation until you are ready for discharge. ?You may feel some cramping or a sensation of having gas, but this quickly passes. ?If sedation has been given, a responsible family member or friend must drive you home. ?Avoid alcohol, driving, and operating machinery for 24 hours following the procedure. ?Unless otherwise instructed, you may immediately return to your normal diet. We recommend you wait until the day after your procedure to resume normal activities. ?If polyps were removed or a biopsy was taken, the physician performing your colonoscopy will tell you when it is safe to resume taking your blood thinners. ?If a biopsy was taken or a polyp was removed, you may notice a little amount of rectal bleeding for 1 to 2 days after the procedure. If you have a large amount of rectal bleeding, high or persistent fevers, or severe abdominal pain within the next 2 weeks, please go to your local emergency room and call the physician who performed your exam. 6 Revised 06/2016 ?Copyright 5145-0870 [facility]. All rights reserved. Revised 06/2016 Previous Version Marcus Kaye MD 04/06/2018 9:04 AM Signed TR OPEN ACCESS QUESTIONNAIRE 1. Are you or could you be ? No 2. Are you currently having any stomach/gastrointestinal issues at this time such as constipation, diarrhea, abdominal pain, rectal bleeding etc? Mild bloating 3. Do you have an implanted device such as a defibrillator, pacemaker, Cardiac Stent or deep brain stimulation device? No 4. Do you have any new or past cardiac (heart) or pulmonary (lung) issues? No 5. Is the patient's BMI 40 or greater? No:Body mass index is 23.8 kg/m?.. Last Wt 04/06/18 : 131 lb (59.4 kg) Last Ht 04/06/18 : 5' 2.21 (1.58 m) 6. Have you had difficulty with prior sedations or complications with other procedures? No 7. Have you had difficulty with anesthesia previously re: ? Difficult intubation? No ? Other difficulty or allergic reaction to anesthesia other than post op N/V? No 8. Do you currently use oxygen or a breathing machine at night? No 9. Do you take any narcotics, depression or anti-Anxiety medications or 3 or more prescription drugs on a daily basis? Yes / citalopram 10. Do you use any illegal or recreational drugs? No 11. Have you been hospitalized in the past 6 weeks? No 12. Are you on dialysis or have Chronic Kidney Disease? No 13. Have you been diagnosed with chronic liver disease such as hepatitis or cirrhosis? No 14. Do you have a seizure disorder? No 15. Do you have difficulty swallowing? No 16. Do you have ulcerative colitis or Crohn's disease? No 17. Do you take any Blood thinners, including Aspirin or fish oil? No 18. Do you have any blood disorders (re:hemophiliac)? No 19. Are you Diabetic? No 20. Any other important health information we should be made aware of prior to your colonoscopy? No 21. Any alcohol use: one glass of wine per week To be completed by LIP: Patient appropriate for Open Access Colonoscopy: Yes: appropriate for Open Access Procedure Checklist: Prior to closing the encounter: ? Complete questionnaire: Yes ? Confirm Prep order has been Ordered/Pended: Yes. ? Patient's procedure could be delayed if not given the script for the prep. Please ensure the prep is escripted to pharmacy or printed. Instructions for the prep will print upon filing or pending this smartset. ? Please send all open access questionnaires to [facility] Sched [facility] #[id number] Shruthi Thomas 04/09/2018 12:29 PM Signed Scheduled patient for open access Colonoscopy with Dr. Currie on 04/18/2018, mailing colonoscopy instructions Shruthi Thomas PROGRESS Observed: 04/06/2018 Status: COMPLETED Source: [place] 9:01 AM [facility] REPOSITORY HNO ID: [id number] Author: Marcus Grace Service: (none) Author Type: Physician Type: Progress Notes Filed: 04/06/2018 9:04 AM Note Text: [facility] OPEN ACCESS QUESTIONNAIRE 1. Are you or could you be ? No 2. Are you currently having any stomach/gastrointestinal issues at this time such as constipation, diarrhea, abdominal pain, rectal bleeding etc? Mild bloating 3. Do you have an implanted device such as a defibrillator, pacemaker, Cardiac Stent or deep brain stimulation device? No 4. Do you have any new or past cardiac (heart) or pulmonary (lung) issues? No 5. Is the patient's BMI 40 or greater? No:Body mass index is 23.8 kg/m?.. Last Wt 04/06/18 : 131 lb (59.4 kg) Last Ht 04/06/18 : 5' 2.21 (1.58 m) 6. Have you had difficulty with prior sedations or complications with other procedures? No 7. Have you had difficulty with anesthesia previously re: ? Difficult intubation? No ? Other difficulty or allergic reaction to anesthesia other than post op N/V? No 8. Do you currently use oxygen or a breathing machine at night? No 9. Do you take any narcotics, depression or anti-Anxiety medications or 3 or more prescription drugs on a daily basis? Yes / citalopram 10. Do you use any illegal or recreational drugs? No 11. Have you been hospitalized in the past 6 weeks? No 12. Are you on dialysis or have Chronic Kidney Disease? No 13. Have you been diagnosed with chronic liver disease such as hepatitis or cirrhosis? No 14. Do you have a seizure disorder? No 15. Do you have difficulty swallowing? No 16. Do you have ulcerative colitis or Crohn's disease? No 17. Do you take any Blood thinners, including Aspirin or fish oil? No 18. Do you have any blood disorders (re:hemophiliac)? No 19. Are you Diabetic? No 20. Any other important health information we should be made aware of prior to your colonoscopy? No 21. Any alcohol use: one glass of wine per week To be completed by LIP: Patient appropriate for Open Access Colonoscopy: Yes: appropriate for Open Access Procedure Checklist: Prior to closing the encounter: ? Complete questionnaire: Yes ? Confirm Prep order has been Ordered/Pended: Yes. ? Patient's procedure could be delayed if not given the script for the prep. Please ensure the prep is escripted to pharmacy or printed. Instructions for the prep will print upon filing or pending this smartset. ? Please send all open access questionnaires to [facility] Sched Pool #[id number] PROGRESS Observed: 04/06/2018 Status: COMPLETED Source: [place] 8:48 AM [facility] REPOSITORY HNO ID: [id number] Author: Marcus Grace Service: (none) Author Type: Physician Type: Progress Notes Filed: 04/06/2018 9:04 AM Note Text: Cindy Sosa is a 67 year old who presents for her annual gynecologic exam without complaints. Being work up by PCP for breathing difficulty and bloating. Postmenopausal: Yes FREDERICK/BSO HRT use: after hysterectomy- not currently History of abnormal pap: No Last mammogram: 2017 normal History of abnormal mammogram: No Sexually active: Yes History of STDS: None Patient concerns for STD exposure: No. Pain with intercourse: No Postcoital bleeding: No Hot flashes: No Night sweats: No Vaginal dryness: Yes Exercise: walking Diet: balanced Obstetric History T0 L0 SAB1 TAB0 Ectopic0 Multiple0 Live Births0 Comment: Pt has one adopted child. PAST MEDICAL HISTORY Diagnosis Date - Benign neoplasm of colon - Disorder of bone and cartilage, unspecified - Family history of malignant neoplasm of gastrointestinal tract PAST SURGICAL HISTORY Procedure Laterality Date - COLONOSCOP W/ OR W/O [facility] SPEC 08/17/07; 10/2012 Colonoscopy - DANDC, DIAG AND/OR THERAPEUTIC Dilation AND curettage - PAST SURGICAL HISTORY OF FOOT SURGERY, Both - ROTATOR CUFF REPAIR - TOTAL ABDOM HYSTERECTOMY FAMILY HISTORY Problem Relation Age of Onset - Heart Mother TRIPLE BYPASS - Osteoporosis Mother - other (Dementia) Mother - Colon Cancer Father - Heart Father - Breast Cancer Other MATERNAL COUSIN SOCIAL HISTORY Social History Substance Use Topics - Smoking status: Never Smoker - Smokeless tobacco: Never Used - Alcohol use Yes Comment: Occasionally REVIEW OF SYSTEMS Abdomen: bloating and slight early satiety - no weight loss Bladder: No dysuria, gross hematuria, urinary frequency, urinary urgency, or incontinence Breast: No breast lumps, nipple d/c, overlying skin changes, redness or skin retraction Allergies and current medication updated:Yes EXAM: BP 106/64 Ht 5' 2.205 (1.58m) Wt 131 lb (59.4kg) BMI 23.80 kg/(m2). GENERAL: pleasant, female in no apparent distress HEENT: Normocephalic, atraumatic, mucus membranes moist and no lesions NECK: Supple, full range of motion, no adenopathy and thyroid normal DERMATOLOGY: Normal, without lesions, non-icteric and non-hirsute BREAST: soft, non-tender, symmetric, no dominant mass, normal nipple-areolar complex, no lymphadenopathy and no nipple discharge ABDOMEN: soft, non-tender and no masses PELVIC: external genitalia normal, normal Bartholin's glands, urethra, [place]'s glands, no vulvar lesions, good vaginal support, physiologic discharge present, normal appearing perineal body and perianal region, atrophic changes BIMANUAL: no adnexal masses, non-tender and uterus surgically absent RECTOVAGINAL: deferred. NEURO: alert and oriented x3,exam grossly non-focal EXTREMITIES: normal ASSESSMENT/PLAN: 1) Health maintenance: Pap/HPV screening no longer needed Mammogram ordered Mammogram up to date Nutrition, exercise and routine health maintenance exams reviewed. Calcium/Vitamin D supplementation information provided. Colon cancer screening: colonoscopy ordered BMD: up to date 2) Follow up one year or sooner as needed Marcus Kaye MD PROGRESS Observed: 04/06/2018 Status: COMPLETED Source: [place] 8:40 AM [facility] REPOSITORY HNO ID: [id number] Author: Tessa Portillo Ma Service: (none) Author Type: (none) Type: Progress Notes Filed: 04/06/2018 9:04 AM Note Text: 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 CNOV Observed: 04/06/2018 Status: COMPLETED Source: [place] 8:40 AM [facility] REPOSITORY Office Visit (WOOB) CINDY OSSA ([id number]) 1950 F Date Time Provider Department 04/06/18 8:40 AM MARCUS CONRAD [facility]OOB During your visit today, we recorded the following information about you: Blood pressure Weight Height 106/64 59.4 kg 1.58 m Tessa Portillo Ma 04/06/2018 9:04 AM Signed 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 Marcus Kaye MD 04/06/2018 9:04 AM Signed Cindy Sosa is a 67 year old who presents for her annual gynecologic exam without complaints. Being work up by PCP for breathing difficulty and bloating. Postmenopausal: Yes FREDERICK/BSO HRT use: after hysterectomy- not currently History of abnormal pap: No Last mammogram: 2017 normal History of abnormal mammogram: No Sexually active: Yes History of STDS: None Patient concerns for STD exposure: No. Pain with intercourse: No Postcoital bleeding: No Hot flashes: No Night sweats: No Vaginal dryness: Yes Exercise: walking Diet: balanced Obstetric History T0 L0 SAB1 TAB0 Ectopic0 Multiple0 Live Births0 Comment: Pt has one adopted child. PAST MEDICAL HISTORY Diagnosis Date - Benign neoplasm of colon - Disorder of bone and cartilage, unspecified - Family history of malignant neoplasm of gastrointestinal tract PAST SURGICAL HISTORY Procedure Laterality Date - COLONOSCOP W/ OR W/O [facility] SPEC 08/17/07; 10/2012 Colonoscopy - DANDC, DIAG AND/OR THERAPEUTIC Dilation AND curettage - PAST SURGICAL HISTORY OF FOOT SURGERY, Both - ROTATOR CUFF REPAIR - TOTAL ABDOM HYSTERECTOMY FAMILY HISTORY Problem Relation Age of Onset - Heart Mother TRIPLE BYPASS - Osteoporosis Mother - other (Dementia) Mother - Colon Cancer Father - Heart Father - Breast Cancer Other MATERNAL COUSIN SOCIAL HISTORY Social History Substance Use Topics - Smoking status: Never Smoker - Smokeless tobacco: Never Used - Alcohol use Yes Comment: Occasionally REVIEW OF SYSTEMS Abdomen: bloating and slight early satiety - no weight loss Bladder: No dysuria, gross hematuria, urinary frequency, urinary urgency, or incontinence Breast: No breast lumps, nipple d/c, overlying skin changes, redness or skin retraction Allergies and current medication updated:Yes EXAM: BP 106/64 Ht 5' 2.205 (1.58m) Wt 131 lb (59.4kg) BMI 23.80 kg/(m2). GENERAL: pleasant, female in no apparent distress HEENT: Normocephalic, atraumatic, mucus membranes moist and no lesions NECK: Supple, full range of motion, no adenopathy and thyroid normal DERMATOLOGY: Normal, without lesions, non-icteric and non-hirsute BREAST: soft, non-tender, symmetric, no dominant mass, normal nipple-areolar complex, no lymphadenopathy and no nipple discharge ABDOMEN: soft, non-tender and no masses PELVIC: external genitalia normal, normal Bartholin's glands, urethra, [place]'s glands, no vulvar lesions, good vaginal support, physiologic discharge present, normal appearing perineal body and perianal region, atrophic changes BIMANUAL: no adnexal masses, non-tender and uterus surgically absent RECTOVAGINAL: deferred. NEURO: alert and oriented x3,exam grossly non-focal EXTREMITIES: normal ASSESSMENT/PLAN: 1) Health maintenance: Pap/HPV screening no longer needed Mammogram ordered Mammogram up to date Nutrition, exercise and routine health maintenance exams reviewed. Calcium/Vitamin D supplementation information provided. Colon cancer screening: colonoscopy ordered BMD: up to date 2) Follow up one year or sooner as needed MD Marcus Hernandez MD 04/06/2018 8:53 AM Addendum Calcium and Vitamin D Supplementation (from the National Institutes of Health Office of Dietary Supplements 2010) Calcium is required by the body for blood vessel, muscle, hormone and nerve functioning. Most of the body's calcium is stored in the bones and teeth where it supports structure and function. Bone is continuously broken down and reformed. When bone breakdown exceeds formation, especially in postmenopausal women, bone loss can increase the risk of osteoporosis and fractures. In addition to low calcium intake, women who smoke, have a family history of osteoporosis, are thin, or , or who take certain medications such as cancer chemotherapy, seizure mediations and steroids are at increased risk of osteoporosis. The calcium requirements in women change with age. The National Institutes of Health (NIH) recommends: 1000mg elemental calcium for premenopausal women age 19-50 1200mg elemental calcium for postmenopausal women and all women over 50 Milk, yogurt, and cheese are rich natural sources of calcium and are the major food contributors in the [place]. For example, 8oz of milk (whole, lowfat or skim) contains about 300mg calcium, 8oz of yogurt contains 415mg. Nondairy sources include salmon and sardines and vegetables, such as [place] cabbage, kale, and broccoli. Foods fortified with calcium include many fruit juices, tofu and cereals. For more food calcium content information, visit http://ods.od.nih.gov/factsheets/calcium. Calcium supplements come in several different forms. Remember that the recommendations are for millgrams (mg) of elemental calcium which may be less than the total weight of the supplement. The amount of elemental calcium is required to be printed on the label. Calcium carbonate is the least expensive form. It must be taken on a full stomach to be properly absorbed. Some patients may experience gas or constipation. Calcium phosphate and calcium citrate may be taken either with or without food and tend to have less side effects but are generally more expensive. Because of its ability to neutralize stomach acid, calcium carbonate is found in some [id number] antacid products, such as Tums? and Rolaids?. Depending on its strength, each chewable pill or softchew provides 200 to 400 mg of elemental calcium. The percentage of calcium absorbed depends on the total amount of elemental calcium consumed at one time. Absorption is highest in doses <500mg. So a woman who takes 1,000mg/day of calcium from supplements should split the dose and take 500mg at two separate times during the day. Too much calcium can cause kidney stones, constipation, difficulty absorbing other nutrients and calcium buildup in blood vessels. Women under 50 should not exceed 2500mg/day (2000mg/day for women over 50) of calcium from food and supplements. Excessive alcohol and caffeine intake can inhibit absorption of calcium. Calcium can reduce the absorption of some medications if taken at the same time of day (bisphosphonates, thyroid medication, Phenytoin and other seizure medications, some antibiotics and iron supplements). Vitamin D promotes calcium absorption in the gut and maintains adequate blood levels of calcium and phosphate for normal bone growth and bone remodeling. Vitamin D also helps regulate cell growth as well as nerve, muscle and immune system function. Vitamin D is produced in the skin as a result of ultraviolet sunlight rays and must be altered in the liver and kidney to become its active form. Recommended intake according to the National Institutes of Health is 600 International Units (IU) for girls and women ages 1-70 and 800 IU for women over 70. Very few foods in nature contain vitamin D. The flesh of fatty fish (such as salmon, tuna, and mackerel) and fish liver oils are among the best sources. Small amounts of vitamin D are found in beef liver, cheese, mushrooms and egg yolks. Most people meet at least some of their vitamin D needs through exposure to sunlight. Season, time of day, length of day, cloud cover, smog, skin melanin content, and sunscreen are among the factors that affect UV radiation exposure and vitamin D synthesis. Despite the importance of the sun for vitamin D synthesis, it is prudent to limit exposure of skin to sunlight and avoid tanning beds. UV radiation is a carcinogen responsible for most of the estimated 1.5 million skin cancers that occur annually in the [place]. Lifetime cumulative UV damage to skin is also responsible for some age-associated dryness and other cosmetic changes. In supplements and fortified foods, vitamin D is available in two forms, D2 (ergocalciferol) and D3 (cholecalciferol). The two are equivalent at normal supplement doses. For women who require high supplement doses because of vitamin D deficiency, D3 may work better to raise blood levels. Some medications can prevent proper absorption of Vitamin D. These include laxatives, corticosteroids like prednisone, the seizure drugs phenobarbital and phenytoin, the weight-loss drug orlistat ( Xenical? and AlliTM) and the cholesterol-lowering drug cholestyramine (Questran?, LoCholest?, and Prevalite?). Talk to your doctor about adjusting your recommended daily vitamin D dosage if you take these medications. You should not exceed 4000 mg of vitamin D supplementation daily unless specifically prescribed by your doctor. ACOG Screening Guidelines (2015) The following health screening schedule is recommended by the [place] (ACOG). Some of these tests may be ordered or performed by your primary care doctor. Pap test screening The pap test looks at cells on the cervix (the opening from the vagina to the uterus) to look for cancer or pre-cancerous changes. These changes are caused by the human papillomavirus (HPV). Studies estimate that half of all women will test positive for this virus within 3 years of starting sexual activity. For young women with a normal immune system, 90% of HPV infections will resolve within 2 years. There is a vaccine available against some forms of HPV. This is recommended for girls and women age 9-26 and is a series of 3 injections over 6 months. Because this vaccine does not protect against all HPV types which can cause cervical cancer, women who received the vaccine still need pap tests. Pap smear screening should be started at age 21. The pap test should be done every 3 years from age 21-29. From age 30-65, pap smears can be done every 5 years if HPV test is negative or every 3 years if HPV testing is not done. For women over the age of 65, ACOG recommends against screening women who have had adequate prior screening and are not otherwise at high risk for cervical cancer. Women who have had a hysterectomy also do not need routine pap smear screening unless the pap smear was done for a cervical cancer or moderate to severe dysplasia. Breast cancer screening Mammogram should be performed every 1-2 years starting at age 40 and every year starting at age 50. Screening may be started earlier depending on family history. Cholesterol screening Lipid panel (cholesterol test) should be checked every 5 years starting at age 45. Diabetes screening Fasting glucose (blood sugar) test should be performed every 3 years starting at age 45. Colorectal cancer screening Starting at age 50, women should have a screening colonoscopy at least every 10 years. Screening may be started earlier depending on family history. Thyroid screening Thyroid function test (TSH) should be checked every 5 years starting at age 50. Bone mineral density screening All postmenopausal women age 65 and over and postmenopausal women with risk factors for osteoporosis should have a bone mineral density test performed. Risk factors include race, family history of osteoporosis, personal history of fractures, poor nutrition, smoking, heavy alcohol use, early menopause, low calcium intake and low body weight. Certain medical conditions and long-term use of some medications may also increase risk. Health Information For Patients and the Community How to Prepare for Your Colonoscopy Using Golytely, Nulytely, Trilyte or Colyte Preparations IMPORTANT - Please Read These Instructions at Least 2 Weeks Before Your Colonoscopy [place] Instructions: ?Your bowel must be empty so that your doctor can clearly view your colon. Follow all of the instructions in this handout EXACTLY as they are written. If you do NOT follow the directions for when to start drinking the bowel preparation (see next page), your colonoscopy WILL be cancelled. ?Do NOT eat any solid food the ENTIRE day before your colonoscopy. ?Buy your bowel preparation at least 5 days before your colonoscopy. ?Do NOT mix the solution until the day before your colonoscopy. Designated Squaring Shear Operator on the Day of Your Exam A responsible family member or friend MUST come with you to your colonoscopy and REMAIN in the endoscopy area until you are discharged! You are NOT ALLOWED to drive, take a taxi or bus, or leave the Endoscopy Center ALONE. If you do not have a responsible show horse driver (family member or friend) with you to take you home, your exam cannot be done with sedation and will be cancelled. Medications Some of the medicines you take may need to be stopped or adjusted before your colonoscopy. You MUST call the doctor who ordered any of the following medicines at least 2 weeks before your colonoscopy. ?Blood thinners -- such as Coumadin? (warfarin), Plavix? (clopidogrel), Ticlid? (ticlopidine hydrochloride), Agrylin? (anagrelide), Xarelto? (Rivaroxaban), Pradaxa? (Dabigatran), Eliquis? (Apixaban), and Effient? (Prasugrel). ?Insulin or diabetes pills. Please call the doctor that monitors your glucose levels. Your insulin dosage may need to be adjusted due to the diet restrictions required with this bowel preparation. (Please bring your diabetes medicines with you on the day of your procedure.) If you take aspirin, take it and ALL other medications prescribed by your doctor. On the day of your colonoscopy, take your medications with a sip of water. Revised 06/2016 1 Five (5) Days Before Your Colonoscopy ?Do NOT take medicines that stop diarrhea -- such as Imodium?, Kaopectate?, or Pepto Bismol?. ?Do NOT take fiber supplements -- such as Metamucil?, Citrucel?, or Perdiem?. ?Do NOT take products that contain iron -- such as multi-vitamins -- (the label lists what is in the products). ?Do NOT take vitamin E. Buy the prescription bowel preparation solution at your local pharmacy or drugstore pharmacy. Three (3) Days Before Your Colonoscopy Do NOT eat high-fiber foods -- such as popcorn, beans, seeds (flax, sunflower, quinoa), multigrain bread, nuts, salad/vegetables, or fresh and dried fruit. One (1) Day Before Your Colonoscopy Only drink clear liquids the ENTIRE DAY before your colonoscopy. Do NOT eat any solid foods. Drink at least 8 ounces of clear liquids every hour after waking up. The clear liquids you can drink include: ?water, apple, or white grape juice; broth; coffee or tea (without milk or creamer); clear carbonated beverages such as pablo leobardo or lemon-mescalero apache soda; Gatorade? or other sports drinks (not red); Ramesh-Aid? or other flavored drinks (not red). You may eat plain jello or other gelatins (not red) or popsicles (not red). Do NOT drink alcohol on the day before or the day of the procedure. 2 Revised 06/2016 When to Mix and Drink Your Bowel Prep Follow the instructions on the label. After mixing, place the solution in the refrigerator for a couple of hours before drinking. You may add the flavor packet that came with the bowel preparation. DO NOT add ice, sugar or any flavorings to the solution. Evening Before Your Colonoscopy ?Start drinking the bowel preparation at 6 PM the evening before your colonoscopy. Drink an 8-oz glass of bowel preparation every 10 minutes. You must finish drinking the solution by 9 PM the night before your scheduled procedure. ?You may continue to drink clear liquids only until midnight. Do NOT eat or drink ANYTHING after midnight the night before your procedure or your procedure may be cancelled. This is for your safety and will reduce the risk of having any food or liquid in your stomach move into your lungs (aspiration) during a procedure. If you take aspirin, take it and ALL other prescribed medicines with a sip of water on the day of your colonoscopy. Contact Information: If you are unable to keep your appointment or have any questions about the instructions, please call the facility where the procedure is being performed. Call between the hours of 8:00 AM and 5:00 PM. If you are calling after 5:00 PM, please call Nurse purification operator helper at [phone]. [facility] [address] [place] [id number] Index # [id number] Revised 06/2016 3 Colonoscopy Procedure Overview Please Read Prior to the Procedure What is a Colonoscopy A colonoscopy is an outpatient procedure in which the inside of the large intestine (colon and rectum) is examined. A colonoscopy is commonly used to evaluate gastrointestinal symptoms, such as rectal and intestinal bleeding, abdominal pain, or changes in bowel habits. Colonoscopies are also performed in individuals without symptoms to check for colorectal polyps or cancer. A screening colonoscopy is recommended for anyone 50 years of age and older, and for anyone with parents, siblings or children with a history of colorectal cancer or polyps. What Happens Before a Colonoscopy To have a successful colonoscopy, your bowel must be empty so that your physician can clearly view the colon. To do this, it is very important to read and follow all of the instructions given to you at least 2 weeks BEFORE your exam. If your bowel is not empty, your colonoscopy will not be successful and may have to be repeated. If you feel nauseated or vomit while taking the bowel preparation, wait 30 minutes before drinking more fluid and start with small sips of solution. Some activity (such as walking) or a few soda crackers may help decrease the nausea you are feeling. If the nausea persists, please contact nurse stone hand at [phone]. You may experience skin irritation around the anus due to the passage of liquid stools. To prevent and treat skin irritation, you should: ?Apply Vaseline? or Desitin? ointment to the skin around the anus before drinking the bowel preparation medications. These products can be purchased at any drugstore. ?Wipe the skin after each bowel movement with disposable wet wipes instead of toilet paper. These are found in the toilet paper area of the store. ?Sit in a bathtub filled with warm water for 10 to 15 minutes after you finish passing a stool; after soaking, blot the skin dry with a soft cloth, apply Vaseline? or Desitin? ointment to the anal area, and place a cotton ball just outside your anus to absorb leaking fluid. What Happens During a Colonoscopy During a colonoscopy, an experienced physician uses a colonoscope (a long, flexible instrument about 1/2 inch in diameter) to view the lining of the colon. The colonoscope is inserted into the rectum and advanced through the large intestine. If necessary during a colonoscopy, small amounts of tissue can be removed for analysis (a biopsy) and polyps can be identified and entirely removed. In many cases, a colonoscopy allows accurate diagnosis and treatment of colorectal problems without the need for a major operation. Revised 06/2016 5 ?You are asked to wear a hospital gown and an IV will be started. ?You are given a pain reliever and a sedative intravenously (in your vein). You will feel relaxed and somewhat drowsy. ?You will lie on your left side, with your knees drawn up towards your chest. ?A small amount of air is used to expand the colon so the physician can see the colon romano. ?You may feel mild cramping during the procedure. Cramping can be reduced by taking slow, deep breaths. ?The colonoscope is slowly withdrawn while the lining of your bowel is carefully examined. ?The procedure lasts from 30 minutes to 1 hour. What Happens After a Colonoscopy ?You will stay in a recovery room for observation until you are ready for discharge. ?You may feel some cramping or a sensation of having gas, but this quickly passes. ?If sedation has been given, a responsible family member or friend must drive you home. ?Avoid alcohol, driving, and operating machinery for 24 hours following the procedure. ?Unless otherwise instructed, you may immediately return to your normal diet. We recommend you wait until the day after your procedure to resume normal activities. ?If polyps were removed or a biopsy was taken, the physician performing your colonoscopy will tell you when it is safe to resume taking your blood thinners. ?If a biopsy was taken or a polyp was removed, you may notice a little amount of rectal bleeding for 1 to 2 days after the procedure. If you have a large amount of rectal bleeding, high or persistent fevers, or severe abdominal pain within the next 2 weeks, please go to your local emergency room and call the physician who performed your exam. 6 Revised 06/2016 ?Copyright 6000-5588 [facility]. All rights reserved. Revised 06/2016 Marcus Kaye MD 04/06/2018 9:04 AM Signed [facility] OPEN ACCESS QUESTIONNAIRE 1. Are you or could you be ? No 2. Are you currently having any stomach/gastrointestinal issues at this time such as constipation, diarrhea, abdominal pain, rectal bleeding etc? Mild bloating 3. Do you have an implanted device such as a defibrillator, pacemaker, Cardiac Stent or deep brain stimulation device? No 4. Do you have any new or past cardiac (heart) or pulmonary (lung) issues? No 5. Is the patient's BMI 40 or greater? No:Body mass index is 23.8 kg/m?.. Last Wt 04/06/18 : 131 lb (59.4 kg) Last Ht 04/06/18 : 5' 2.21 (1.58 m) 6. Have you had difficulty with prior sedations or complications with other procedures? No 7. Have you had difficulty with anesthesia previously re: ? Difficult intubation? No ? Other difficulty or allergic reaction to anesthesia other than post op N/V? No 8. Do you currently use oxygen or a breathing machine at night? No 9. Do you take any narcotics, depression or anti-Anxiety medications or 3 or more prescription drugs on a daily basis? Yes / citalopram 10. Do you use any illegal or recreational drugs? No 11. Have you been hospitalized in the past 6 weeks? No 12. Are you on dialysis or have Chronic Kidney Disease? No 13. Have you been diagnosed with chronic liver disease such as hepatitis or cirrhosis? No 14. Do you have a seizure disorder? No 15. Do you have difficulty swallowing? No 16. Do you have ulcerative colitis or Crohn's disease? No 17. Do you take any Blood thinners, including Aspirin or fish oil? No 18. Do you have any blood disorders (re:hemophiliac)? No 19. Are you Diabetic? No 20. Any other important health information we should be made aware of prior to your colonoscopy? No 21. Any alcohol use: one glass of wine per week To be completed by LIP: Patient appropriate for Open Access Colonoscopy: Yes: appropriate for Open Access Procedure Checklist: Prior to closing the encounter: ? Complete questionnaire: Yes ? Confirm Prep order has been Ordered/Pended: Yes. ? Patient's procedure could be delayed if not given the script for the prep. Please ensure the prep is escripted to pharmacy or printed. Instructions for the prep will print upon filing or pending this smartset. ? Please send all open access questionnaires to [facility] Sched Pool #[id number] Shruthi Thomas 04/09/2018 12:29 PM Signed Scheduled patient for open access Colonoscopy with Dr. Currie on 04/18/2018, mailing colonoscopy instructions Shruthi Thomas Referring Provider: MARCUS CONRAD [[id number]] Allergies As of Date: 04/06/2018 Noted Allergy Reaction BACTRIM (SULFAMETHOXAZOLE-TRIMETH*06/09/2006 8 - GI Upset HYDROCODONE 11/30/2015 8 - GI Upset Comments: Nausea Date Reviewed: 04/06/2018 Reviewed by: Tessa Portillo Ma - Fully Assessed Reason for Visit: Yearly Exam [187] Primary Visit Diagnosis:Encounter for gynecological examination without abnormal finding [Z01.419] Other Visit Diagnoses:Encounter for screening mammogram for malignant neoplasm of breast [Z12.31] Special screening for malignant neoplasms, colon [Z12.11] Order(s):YARELIS SCREENING [[id number]] Order #: [id number] FUTURE [] peg 3350-electrolytes (COLYTE) 240-22.72-6.72 -5.84 gram solutionTake 4,000 mL by mouth one time only for 1 dose.Disp: 4000 mLRfl: 0 COLONOSCOPY SCRN NOT HIGH RISK [[id number]] Order #: [id number] FUTURE Prescriptions as of 04/06/2018 Sig: CITALOPRAM 20 MG TABLET PEG 3350 240 GRAM-ELECTROLYTE* Take 4,000 mL by mouth one ti* NITROFURANTOIN MONOHYDRATE AND * Take 1 capsule by mouth. Take* Problem List As Of Date 04/06/2018 Noted Resolved FAMILY HX GI MALIGNANCY [Z80.0] INVALID FOR* Disorder of bone and cartilage, unspecified [M8*INVALID FOR*11/05/2012 Osteopenia [M85.80] INVALID FOR* Recurrent UTI [N39.0] INVALID FOR* Personal history of colonic polyps [Z86.010] INVALID FOR* Family history of colon cancer [Z80.0] INVALID FOR* Plantar fasciitis [M72.2] INVALID FOR* Other instructions from your clinician: Calcium and Vitamin D Supplementation (from the National Institutes of Health Office of Dietary Supplements 2010) Calcium is required by the body for blood vessel, muscle, hormone and nerve functioning. Most of the body's calcium is stored in the bones and teeth where it supports structure and function. Bone is continuously broken down and reformed. When bone breakdown exceeds formation, especially in postmenopausal women, bone loss can increase the risk of osteoporosis and fractures. In addition to low calcium intake, women who smoke, have a family history of osteoporosis, are thin, or , or who take certain medications such as cancer chemotherapy, seizure mediations and steroids are at increased risk of osteoporosis. The calcium requirements in women change with age. The National Institutes of Health (NIH) recommends: 1000mg elemental calcium for premenopausal women age 19-50 1200mg elemental calcium for postmenopausal women and all women over 50 Milk, yogurt, and cheese are rich natural sources of calcium and are the major food contributors in the [place]. For example, 8oz of milk (whole, lowfat or skim) contains about 300mg calcium, 8oz of yogurt contains 415mg. Nondairy sources include salmon and sardines and vegetables, such as [place] cabbage, kale, and broccoli. Foods fortified with calcium include many fruit juices, tofu and cereals. For more food calcium content information, visit http://ods.od.nih.gov/factsheets/calcium. Calcium supplements come in several different forms. Remember that the recommendations are for millgrams (mg) of elemental calcium which may be less than the total weight of the supplement. The amount of elemental calcium is required to be printed on the label. Calcium carbonate is the least expensive form. It must be taken on a full stomach to be properly absorbed. Some patients may experience gas or constipation. Calcium phosphate and calcium citrate may be taken either with or without food and tend to have less side effects but are generally more expensive. Because of its ability to neutralize stomach acid, calcium carbonate is found in some [id number] antacid products, such as Tums? and Rolaids?. Depending on its strength, each chewable pill or softchew provides 200 to 400 mg of elemental calcium. The percentage of calcium absorbed depends on the total amount of elemental calcium consumed at one time. Absorption is highest in doses <500mg. So a woman who takes 1,000mg/day of calcium from supplements should split the dose and take 500mg at two separate times during the day. Too much calcium can cause kidney stones, constipation, difficulty absorbing other nutrients and calcium buildup in blood vessels. Women under 50 should not exceed 2500mg/day (2000mg/day for women over 50) of calcium from food and supplements. Excessive alcohol and caffeine intake can inhibit absorption of calcium. Calcium can reduce the absorption of some medications if taken at the same time of day (bisphosphonates, thyroid medication, Phenytoin and other seizure medications, some antibiotics and iron supplements). Vitamin D promotes calcium absorption in the gut and maintains adequate blood levels of calcium and phosphate for normal bone growth and bone remodeling. Vitamin D also helps regulate cell growth as well as nerve, muscle and immune system function. Vitamin D is produced in the skin as a result of ultraviolet sunlight rays and must be altered in the liver and kidney to become its active form. Recommended intake according to the National Institutes of Health is 600 International Units (IU) for girls and women ages 1-70 and 800 IU for women over 70. Very few foods in nature contain vitamin D. The flesh of fatty fish (such as salmon, tuna, and mackerel) and fish liver oils are among the best sources. Small amounts of vitamin D are found in beef liver, cheese, mushrooms and egg yolks. Most people meet at least some of their vitamin D needs through exposure to sunlight. Season, time of day, length of day, cloud cover, smog, skin melanin content, and sunscreen are among the factors that affect UV radiation exposure and vitamin D synthesis. Despite the importance of the sun for vitamin D synthesis, it is prudent to limit exposure of skin to sunlight and avoid tanning beds. UV radiation is a carcinogen responsible for most of the estimated 1.5 million skin cancers that occur annually in the [place]. Lifetime cumulative UV damage to skin is also responsible for some age-associated dryness and other cosmetic changes. In supplements and fortified foods, vitamin D is available in two forms, D2 (ergocalciferol) and D3 (cholecalciferol). The two are equivalent at normal supplement doses. For women who require high supplement doses because of vitamin D deficiency, D3 may work better to raise blood levels. Some medications can prevent proper absorption of Vitamin D. These include laxatives, corticosteroids like prednisone, the seizure drugs phenobarbital and phenytoin, the weight-loss drug orlistat ( Xenical? and AlliTM) and the cholesterol-lowering drug cholestyramine (Questran?, LoCholest?, and Prevalite?). Talk to your doctor about adjusting your recommended daily vitamin D dosage if you take these medications. You should not exceed 4000 mg of vitamin D supplementation daily unless specifically prescribed by your doctor. ACOG Screening Guidelines (2015) The following health screening schedule is recommended by the [employer] (ACOG). Some of these tests may be ordered or performed by your primary care doctor. Pap test screening The pap test looks at cells on the cervix (the opening from the vagina to the uterus) to look for cancer or pre-cancerous changes. These changes are caused by the human papillomavirus (HPV). Studies estimate that half of all women will test positive for this virus within 3 years of starting sexual activity. For young women with a normal immune system, 90% of HPV infections will resolve within 2 years. There is a vaccine available against some forms of HPV. This is recommended for girls and women age 9-26 and is a series of 3 injections over 6 months. Because this vaccine does not protect against all HPV types which can cause cervical cancer, women who received the vaccine still need pap tests. Pap smear screening should be started at age 21. The pap test should be done every 3 years from age 21-29. From age 30-65, pap smears can be done every 5 years if HPV test is negative or every 3 years if HPV testing is not done. For women over the age of 65, ACOG recommends against screening women who have had adequate prior screening and are not otherwise at high risk for cervical cancer. Women who have had a hysterectomy also do not need routine pap smear screening unless the pap smear was done for a cervical cancer or moderate to severe dysplasia. Breast cancer screening Mammogram should be performed every 1-2 years starting at age 40 and every year starting at age 50. Screening may be started earlier depending on family history. Cholesterol screening Lipid panel (cholesterol test) should be checked every 5 years starting at age 45. Diabetes screening Fasting glucose (blood sugar) test should be performed every 3 years starting at age 45. Colorectal cancer screening Starting at age 50, women should have a screening colonoscopy at least every 10 years. Screening may be started earlier depending on family history. Thyroid screening Thyroid function test (TSH) should be checked every 5 years starting at age 50. Bone mineral density screening All postmenopausal women age 65 and over and postmenopausal women with risk factors for osteoporosis should have a bone mineral density test performed. Risk factors include race, family history of osteoporosis, personal history of fractures, poor nutrition, smoking, heavy alcohol use, early menopause, low calcium intake and low body weight. Certain medical conditions and long-term use of some medications may also increase risk. Health Information For Patients and the Community How to Prepare for Your Colonoscopy Using Golytely, Nulytely, Trilyte or Colyte Preparations IMPORTANT - Please Read These Instructions at Least 2 Weeks Before Your Colonoscopy Mcgraw Instructions: ?Your bowel must be empty so that your doctor can clearly view your colon. Follow all of the instructions in this handout EXACTLY as they are written. If you do NOT follow the directions for when to start drinking the bowel preparation (see next page), your colonoscopy WILL be cancelled. ?Do NOT eat any solid food the ENTIRE day before your colonoscopy. ?Buy your bowel preparation at least 5 days before your colonoscopy. ?Do NOT mix the solution until the day before your colonoscopy. Designated Squaring Shear Operator on the Day of Your Exam A responsible family member or friend MUST come with you to your colonoscopy and REMAIN in the endoscopy area until you are discharged! You are NOT ALLOWED to drive, take a taxi or bus, or leave the Endoscopy Center ALONE. If you do not have a responsible show horse driver (family member or friend) with you to take you home, your exam cannot be done with sedation and will be cancelled. Medications Some of the medicines you take may need to be stopped or adjusted before your colonoscopy. You MUST call the doctor who ordered any of the following medicines at least 2 weeks before your colonoscopy. ?Blood thinners -- such as Coumadin? (warfarin), Plavix? (clopidogrel), Ticlid? (ticlopidine hydrochloride), Agrylin? (anagrelide), Xarelto? (Rivaroxaban), Pradaxa? (Dabigatran), Eliquis? (Apixaban), and Effient? (Prasugrel). ?Insulin or diabetes pills. Please call the doctor that monitors your glucose levels. Your insulin dosage may need to be adjusted due to the diet restrictions required with this bowel preparation. (Please bring your diabetes medicines with you on the day of your procedure.) If you take aspirin, take it and ALL other medications prescribed by your doctor. On the day of your colonoscopy, take your medications with a sip of water. Revised 06/2016 1 Five (5) Days Before Your Colonoscopy ?Do NOT take medicines that stop diarrhea -- such as Imodium?, Kaopectate?, or Pepto Bismol?. ?Do NOT take fiber supplements -- such as Metamucil?, Citrucel?, or Perdiem?. ?Do NOT take products that contain iron -- such as multi- vitamins -- (the label lists what is in the products). ?Do NOT take vitamin E. Buy the prescription bowel preparation solution at your local pharmacy or drugstore pharmacy. Three (3) Days Before Your Colonoscopy Do NOT eat high-fiber foods -- such as popcorn, beans, seeds (flax, sunflower, quinoa), multigrain bread, nuts, salad/vegetables, or fresh and dried fruit. One (1) Day Before Your Colonoscopy Only drink clear liquids the ENTIRE DAY before your colonoscopy. Do NOT eat any solid foods. Drink at least 8 ounces of clear liquids every hour after waking up. The clear liquids you can drink include: ?water, apple, or white grape juice; broth; coffee or tea (without milk or creamer); clear carbonated beverages such as pablo leobardo or lemon-mescalero apache soda; Gatorade? or other sports drinks (not red); Ramesh-Aid? or other flavored drinks (not red). You may eat plain jello or other gelatins (not red) or popsicles (not red). Do NOT drink alcohol on the day before or the day of the procedure. 2 Revised 06/2016 When to Mix and Drink Your Bowel Prep Follow the instructions on the label. After mixing, place the solution in the refrigerator for a couple of hours before drinking. You may add the flavor packet that came with the bowel preparation. DO NOT add ice, sugar or any flavorings to the solution. Evening Before Your Colonoscopy ?Start drinking the bowel preparation at 6 PM the evening before your colonoscopy. Drink an 8-oz glass of bowel preparation every 10 minutes. You must finish drinking the solution by 9 PM the night before your scheduled procedure. ?You may continue to drink clear liquids only until midnight. Do NOT eat or drink ANYTHING after midnight the night before your procedure or your procedure may be cancelled. This is for your safety and will reduce the risk of having any food or liquid in your stomach move into your lungs (aspiration) during a procedure. If you take aspirin, take it and ALL other prescribed medicines with a sip of water on the day of your colonoscopy. Contact Information: If you are unable to keep your appointment or have any questions about the instructions, please call the facility where the procedure is being performed. Call between the hours of 8:00 AM and 5:00 PM. If you are calling after 5:00 PM, please call Nurse purification operator helper at [phone]. [facility] [address] [place] [address] [id number] Index # [id number] Revised 06/2016 3 Colonoscopy Procedure Overview Please Read Prior to the Procedure What is a Colonoscopy A colonoscopy is an outpatient procedure in which the inside of the large intestine (colon and rectum) is examined. A colonoscopy is commonly used to evaluate gastrointestinal symptoms, such as rectal and intestinal bleeding, abdominal pain, or changes in bowel habits. Colonoscopies are also performed in individuals without symptoms to check for colorectal polyps or cancer. A screening colonoscopy is recommended for anyone 50 years of age and older, and for anyone with parents, siblings or children with a history of colorectal cancer or polyps. What Happens Before a Colonoscopy To have a successful colonoscopy, your bowel must be empty so that your physician can clearly view the colon. To do this, it is very important to read and follow all of the instructions given to you at least 2 weeks BEFORE your exam. If your bowel is not empty, your colonoscopy will not be successful and may have to be repeated. If you feel nauseated or vomit while taking the bowel preparation, wait 30 minutes before drinking more fluid and start with small sips of solution. Some activity (such as walking) or a few soda crackers may help decrease the nausea you are feeling. If the nausea persists, please contact nurse stone hand at [phone]. You may experience skin irritation around the anus due to the passage of liquid stools. To prevent and treat skin irritation, you should: ?Apply Vaseline? or Desitin? ointment to the skin around the anus before drinking the bowel preparation medications. These products can be purchased at any drugstore. ?Wipe the skin after each bowel movement with disposable wet wipes instead of toilet paper. These are found in the toilet paper area of the store. ?Sit in a bathtub filled with warm water for 10 to 15 minutes after you finish passing a stool; after soaking, blot the skin dry with a soft cloth, apply Vaseline? or Desitin? ointment to the anal area, and place a cotton ball just outside your anus to absorb leaking fluid. What Happens During a Colonoscopy During a colonoscopy, an experienced physician uses a colonoscope (a long, flexible instrument about 1/2 inch in diameter) to view the lining of the colon. The colonoscope is inserted into the rectum and advanced through the large intestine. If necessary during a colonoscopy, small amounts of tissue can be removed for analysis (a biopsy) and polyps can be identified and entirely removed. In many cases, a colonoscopy allows accurate diagnosis and treatment of colorectal problems without the need for a major operation. Revised 06/2016 5 ?You are asked to wear a hospital gown and an IV will be started. ?You are given a pain reliever and a sedative intravenously (in your vein). You will feel relaxed and somewhat drowsy. ?You will lie on your left side, with your knees drawn up towards your chest. ?A small amount of air is used to expand the colon so the physician can see the colon romano. ?You may feel mild cramping during the procedure. Cramping can be reduced by taking slow, deep breaths. ?The colonoscope is slowly withdrawn while the lining of your bowel is carefully examined. ?The procedure lasts from 30 minutes to 1 hour. What Happens After a Colonoscopy ?You will stay in a recovery room for observation until you are ready for discharge. ?You may feel some cramping or a sensation of having gas, but this quickly passes. ?If sedation has been given, a responsible family member or friend must drive you home. ?Avoid alcohol, driving, and operating machinery for 24 hours following the procedure. ?Unless otherwise instructed, you may immediately return to your normal diet. We recommend you wait until the day after your procedure to resume normal activities. ?If polyps were removed or a biopsy was taken, the physician performing your colonoscopy will tell you when it is safe to resume taking your blood thinners. ?If a biopsy was taken or a polyp was removed, you may notice a little amount of rectal bleeding for 1 to 2 days after the procedure. If you have a large amount of rectal bleeding, high or persistent fevers, or severe abdominal pain within the next 2 weeks, please go to your local emergency room and call the physician who performed your exam. 6 Revised 06/2016 ?Copyright 1324-5139 [facility]. All rights reserved. Revised 06/2016 Prescriptions ordered this encounter Disp Refills Start End PEG 3350 240 GRAM-ELECTROLYTES 22.72* 4000* 0 04/06/2018 04/06/2018 Route: ORAL Sig: Take 4,000 mL by mouth one time only for 1 dose. Disposition: Return in 1 year (on 04/06/2019) for Annual Exam. Follow-up and Disposition History Recorded Encounter Status:Closed by MARCUS GRACE MD on 04/06/18 ABDOMEN COMPLETE Observed: 04/02/2018 Status: F Source: [place] 10:22 AM [facility] REPOSITORY [facility] Imaging Services [address] [place] [address] Abdomen Complete MR#: [id number] Acct: [id number] Name: CINDY SOSA Rep #: [id number] : 1950 F 67 From: Micheal Pimentel MD PCP: Aakash Matt Status: REG CLI Study: Abdomen Complete Date of Exam: 04/02/18 Exam# [id number] Ordering Dr: Aakash Matt DO STUDY: ABDOMINAL ULTRASOUND REASON FOR EXAM: Female, 67 years old. Abdominal discomfort TECHNIQUE: Transabdominal ultrasound was performed with real-time and static ford scale imaging. TECHNICAL QUALITY: Adequate. COMPARISON: None. FINDINGS: Liver: The liver measures 13.2 cm. There is normal echogenicity of the liver. The bile ducts are within normal limits. There is hepatic color flow. The direction of portal flow is hepatopetal. There is a hyperechoic 2 cm likely hemangioma Portal vein measurement: Gallbladder: Normal distended gallbladder. The gallbladder wall measures 2.3 mm. There is a negative sonographic Mcmillan's sign. There is no pericholecystic fluid. There are no gallstones. Common Bile Duct (C.B.D.): The common bile duct measures 2.5 mm. Pancreas: Normal size of the head, body and tail of the pancreas. There is normal echogenicity of the pancreas. There is no demonstrated pancreatic mass or cyst. Spleen: Normal size of the spleen. The spleen measures 10.0 cm. Right Kidney: Normal size of the right kidney. The right kidney measures 9.3 x 4.7 x 4.0 cm. Normal renal cortex. The right cortex measures 1.3 cm. There is no demonstrated renal mass or cyst. There is no right hydronephrosis. Left Kidney: Normal size of the left kidney. The left kidney measures 9.9 x 4.8 x 5.2 cm. Normal renal cortex. The left cortex measures 1.9 cm. 2 simple cysts measuring up to 2.5 cm in greatest dimension. There is either mild left hydronephrosis or parapelvic cyst. Aorta: Tapers normally, atherosclerotic plaque noted. I.V.C.: The IVC is patent. There is no ascites. US/Abdomen Complete IMPRESSION: 2 cm hyperechoic nodule within the liver, likely hemangioma. Mild left hydronephrosis versus parapelvic cyst Simple left renal cysts Sonographically normal gallbladder Electronically Signed: Franky Pimentel MD at 13:00 EST , Service support , CC: Aakash Matt; Aakash Matt DO Tacking Stitch Remover: Signed 12 LEAD ELECTROCARDIOGRAM Observed: 02/12/2018 Status: F Source: [place] 3:52 PM [facility] TO [facility] REPOSITORY [facility] Cardiovascular Services [address] [place] [address] 12 Lead EKG 02/07/18 1225 MR#: [id number] Acct: [id number] Name: CINDY SOSA Rep #: [id number] : 1950 67 From: Chaz Charles MD Attending Dr: Status: DEP ER Ordering Dr: Chris Gonsalez DO Date: 02/07/18 Location: ED Sex: F C Admitted: Test Reason : CP Blood Pressure : / mmHG Vent. Rate : 078 BPM Atrial Rate : 078 BPM P-R Int : 168 ms QRS Dur : 088 ms QT Int : 394 ms P-R-T Axes : 077 061 072 degrees QTc Int : 449 ms Normal sinus rhythm Normal ECG Confirmed by CHAZ CHARLES MD ([id number]), video effects editor HIRAM JORDAN ([id number]) on 02/12/2018 3:51:47 PM Referred By: RIANA Confirmed By:CHAZ CHARLES MD 02/12/18 1551 Date Chaz Charles MD CC: Aakash Gonsalez DO Signed STRESS REPORT Observed: 02/09/2018 Status: F Source: [place] 11:12 AM PENDING SALE TO [facility] REPOSITORY [facility] Cardiovascular Services [address] [place] [address] MR#: [id number] Acct: [id number] Name: CINDY SOSA Rep #: [id number] : 1950 67 From: Chaz Charles MD Primary Care: Aakash Matt Status: REG CLI Ordering Dr: Sex: F C Stress Test Report Exercise myocardial perfusion stress test. 67-year-old lady with a history of chest pain. Stress protocol. Resting EKG demonstrates normal sinus rhythm with rate of 68 beats minute normal intervals and noted resting blood pressure 120/78 mmHg. The patient exercised according to regular Александр protocol for total duration of 7 minutes and 16 seconds. The maximum heart rate attained was 153 bpm which was 101% maximum predicted heart rate the maximum workload was 8.9 metabolic equivalents. At rest there were no ST or T wave changes noted suggest ischemia peak exercise upsloping ST changes only were noted with no meet the criteria for ischemia. The resting blood pressure 124/70 with a peak blood pressure 144/74. No clinical angina was noted moderate dyspnea was noted. Myocardial perfusion protocol. 11.3 mCi of technetium 99m sestamibi was injected at rest. Patient exercised according to regular Александр protocol for 7 minutes and 16 seconds. At peak exercise 32.4 mCi of technetium 99m sestamibi was injected stress images were obtained stress and rest images were reconstructed and compared in the short axis vertical long horizontal long axis. Gated images were also obtained Perfusion SPECT analysis: Review of the stress images demonstrate normal uptake of tracer noted in all areas of the myocardium. The resting images similarly demonstrate normal uptake of tracer noted in all areas of the myocardium. No areas of reversibility are noted suggest ischemia. No previous infarct is noted. Gated SPECT analysis. The gated ejection fraction is noted to be 77%. Conclusion: Normal exercise myocardial perfusion stress test at a moderate workload. No clinical angina noted. Preserved ejection fraction. 02/09/18 1112 <Electronically signed by Chaz Charles MD> Date Chaz Charles MD CC: Aakash Matt; Aakash Matt DO Date Dictated: 02/09/18 1108 Date Transcribed: 02/09/181107 Tacking Stitch Remover: CO Signed EMERGENCY DEPARTMENT Observed: 02/08/2018 Status: F Source: [place] SUMMARY 8:38 AM [facility] REPOSITORY [facility] Medical Records Department [address] [place] [address] Emergency Department Summary 02/07/18 1454 MR#: [id number] Acct: [id number] Name: CINDY SOSA Rep #: [id number] : 1950 67 From: Chris Gonsalez DO PCP: Aakash Matt Status: DEP ER - ER Visit Summary Date of Service: 02/07/18 Chief Complaint: Shortness of breath History of Present Illness: The patient is a 67 F who states that for the past 2-3 weeks he has had some shortness of breath however it was acutely worse today. She states that she has been sleeping in a chair having difficulty laying back. She states that last she was at her doctor's office and was started on antibiotic as well as a nasal spray for some sinus issues. She is scheduled for a stress test on Monday. states she has very poor sleep and at times she is up hyperventilating and she concurs with that statement stating that time she needs to think about her breathing in order to slow it down. She does admit to having some anxiety and wonders if that is a part of it. Patient also states that she wakes up at night gasping for air. She does state that she is a snorer. Physical Examination: Afebrile vital signs are stable Gen: Well-nourished well-developed Head: Normocephalic atraumatic Eyes: Perrl EOMI ENT: TMs clear no rhinorrhea moist mucous membranes Neck: Supple no lymphadenopathy no JVD nontender CVS: Regular rate rhythm no murmurs normal S1-S2 Respiratory: No distress clear to auscultation bilaterally chest nontender Abdomen: Soft nontender nondistended normal bowel sounds no masses Back: Nontender Extremity: Nontender no edema Skin: Normal color no rash Neuro: alert orientated 3 CN II-XII intact normal strength sensation reflexes gait cerebellar Psych: Anxious affect Test Results: EKG shows a normal sinus rhythm at a rate of 78. CBC BMP troponin essentially negative. Emergency Department Course and Treatment: Patient received a oral dose of Ativan and states that dyspnea is improved. She has stress test approved and scheduled for Monday. She may also benefit from sleep study. I will write for a few Ativan to carry her from now until her next doctor's appointment. Impression: 1. Dyspnea 2. Anxiety This note was generated with [employer] dictation software. It may contain incorrect words, spelling, and punctuation that were not noted in review of the chart prior to signing ED Disposition - Plan for ED Patient: Disposition: Home or Assisted Living Chief Complaint: Shortness of Breath Instructions: What Are Snoring and Sleep Apnea?, ED Dyspnea Shortness of Breath Prescriptions: Lorazepam [Ativan] 0.5 mg PO BID PRN PRN 7 Days #14 tab PRN Reason: Anxiety Referrals: Aakash Matt [Primary Care Provider] - As soon as possible Additional Instructions: Keep your stress test appointment on Monday What to do if you have Problems For any increased pain, shortness of breath, bleeding, nausea or vomiting, chest pain, or any unexpected problems, contact your Primary Care Provider. Call [facility] ([phone]) or report to the closest Emergency Room. Call 911 if necessary. 02/08/18 0838 <Electronically signed by Chris Gonsalez DO> Date Chris Gonsalez DO Cosigner Signature (If Indicated): Date CC: Aakash Matt CBC-COMPLETE BLOOD CNT Collected: 02/07/2018 Status: F Source: [place] NO DIFF 1:30 PM [facility] REPOSITORY TYPE CODE TESTS RESULT OUT OF RANGE REFERENCE UNITS LAB L100.1000 4.4-11.0 K/mm3 Normal WBC 6.1 LAB L100.1200 4.2-5.4 M/mm3 Normal RBC 4.39 LAB L100.1300 12.0-15.0 g/dl Normal HGB 13.8 LAB L100.1400 37-47 % Normal HCT 40.6 LAB L100.1500 81-99 fL Normal MCV 92.5 LAB L100.1600 27.0-32.0 pg Normal MCH 31.4 LAB L100.1700 32-36 g/gl Normal MCHC 34.0 LAB L100.1810 11.6-14.6 % Normal RDW CV 13.1 LAB L100.1820 35.1-43.9 fl Normal RDW SD 43.2 LAB L100.1900 150-450 K/mm3 Normal PLT 241 LAB L100.2000 6.2-12.0 fl Normal MPV 10.4 Performed By: #### L100.0500 #### [facility] [address] [place], [place], [id number] BASIC METABOLIC Collected: 02/07/2018 Status: F Source: [place] PROFILE (BMP) 1:30 PM [facility] REPOSITORY TYPE CODE TESTS RESULT OUT OF RANGE REFERENCE UNITS LAB L501.0100 74-106 mg/dL Normal GLU 92 Result Comment: Please note revised GLUCOSE reference range effective 2017. LAB L501.1000 7-18 mg/dL Normal BUN 15 LAB L501.1100 0.55-1.02 mg/dL Normal CREAT,SERUM 0.88 Result Comment: The validity of the calculated GFR AND GFRAA in patients over 70 years has not been determined. Clinical correlation is essential. LAB L501.1110 >60 mL/min Normal EST GFR 68 Result Comment: Non- GFR Calc LAB L501.1115 >60 mL/min Normal EST GFR - AA 82 Result Comment: GFR Calc LAB L501.1255 ml/min Normal Estimated CRCL 47.72 LAB L501.1300 10-20 RATIO Normal BUN/CRE 17.1 LAB L501.2200 8.5-10 mg/dL Normal .1 CA 9.0 LAB L501.5300 136-14 mmol/L Normal 5 NA 142 LAB L501.5600 3.5-5. mmol/L Normal 1 K 3.7 LAB L501.5900 98-107 mmol/L High CL 108 LAB L501.6100 21.0-3 mmol/L Normal 2.0 CO2 25.0 LAB L501.6200 5-15 Normal GAP 9 Performed By: #### L500.2500, L501.4010 #### [facility] [address] [place], [address] TROPONIN-I Collected: 02/07/2018 Status: F Source: [place] 1:30 PM [facility] REPOSITORY TYPE CODE TESTS RESULT OUT OF RANGE REFERENCE UNITS LAB L501.4010 <0.045 ng/mL Normal < 0.015 TROPONIN-I Result Comment: TROPONIN-I EXPECTED VALUES <0.045 Negative 0.045 - 0.590 Consistent with Cardiac Damage > OR = 0.600 Critical Value Not every elevated troponin is indicative of [place]. These values should be used with clinical judgement in examining the patient's clinical picture for diagnosis. To establish a diagnosis of KS versus myocardial injury, there must be a demonstrated rise and/or fall in the troponin values, in addition to ischemic symptoms, EKG changes, new regional wall motion abnormality, and/or angiographical evidence. PLEASE NOTE: REFERENCE RANGES EDITED 17 Performed By: #### L500.2500, L501.4010 #### [facility] [address] [place], [address] D-DIMER QUANTITATIVE Collected: 02/07/2018 Status: F Source: [place] (DVT/PE) 1:30 PM [facility] REPOSITORY TYPE CODE TESTS RESULT OUT OF RANGE REFERENCE UNITS LAB L300.8000 0.27-0.49 FEU/ug/m Low D-DIMER < 0.27 QUANT Result Comment: NORMAL D-Dimer level (<0.50) indicates no DVT or PE. Performed By: #### L300.8000 #### [facility] [address] [place], [address] CHEST PA AND LATERAL Observed: 02/07/2018 Status: F Source: [place] 1:21 PM [facility] REPOSITORY [facility] Imaging Services [address] [place] [address] Chest PA and Lateral MR#: [id number] Acct: [id number] Name: CINDY SOSA Rep #: [id number] : 1950 F 67 From: Anthony Lebron MD PCP: Aakash Matt Status: REG ER Study: Chest PA and Lateral Date of Exam: 02/07/18 Exam# [id number] Ordering Dr: Chris Gonsalez DO STUDY: X-RAY CHEST REASON FOR EXAM: Female, 67 years old. Shortness of breath intermittently. Worse with activity. TECHNIQUE: PA and lateral chest COMPARISON: 02/01/2018. FINDINGS: The lungs are clear and expanded. Normal cardiomediastinal silhouette, teresa and pleural margins. No acute osseous or upper abdominal process. Postoperative changes of the right shoulder, rotator cuff anchor screws present. Mild thoracal lumbar scoliosis. Mild thoracic kyphosis. Mild midthoracic disc degeneration. RAD/Chest PA and Lateral IMPRESSION: No acute cardiopulmonary process. Electronically Signed: Anthony Vi, at 13:51 EDT Tel , Service support , CC: Aakash Matt; Chris Gonsalez DO Tacking Stitch Remover: Signed CBC W/DIFF, AUTOMATED Collected: 02/01/2018 Status: F Source: [place] 1:37 PM [facility] REPOSITORY TYPE CODE TESTS RESULT OUT OF RANGE REFERENCE UNITS LAB L100.1000 4.4-11.0 K/mm3 Normal WBC 4.6 LAB L100.1200 4.2-5.4 M/mm3 Normal RBC 4.40 LAB L100.1300 12.0-15.0 g/dl Normal HGB 13.6 LAB L100.1400 37-47 % Normal HCT 41.7 LAB L100.1500 81-99 fL Normal MCV 94.8 LAB L100.1600 27.0-32.0 pg Normal MCH 30.9 LAB L100.1700 32-36 g/gl Normal MCHC 32.6 LAB L100.1810 11.6-14.6 % Normal RDW CV 13.4 LAB L100.1820 35.1-43.9 fl High RDW SD 44.8 LAB L100.1900 150-450 K/mm3 Normal PLT 249 LAB L100.2000 6.2-12.0 fl Normal MPV 10.7 LAB L100.2100 47-70 % High NEUT% 73.2 LAB L100.2200 19-41 % Low LY% 16.2 LAB L100.2300 0-10 % Normal MONO% 9.1 LAB L100.2400 0-5 % Normal EO% 0.9 LAB L100.2500 0-1 % Normal BASO% 0.4 LAB L100.2550 0.0-0.9 % Normal IM GRAN % 0.200 Result Comment: IG% - Immature Granulocytes (promyelocytes, myelocytes and metamyelocytes) > 1% indicates that a LEFT SHIFT is Present. LAB L100.2620 2.0-7.7 X10 3/uL Normal Absolute Neut 3.4 LAB L100.2720 0.83-4.51 X10 3/ul Low Absolute Lymph 0.75 Performed By: #### L100.0100 #### [facility] [address] [place], [place], [address] COMPREHENSIVE METABOLIC Collected: 02/01/2018 Status: F Source: [facility] 1:37 PM [facility] REPOSITORY Order Comment: 'TROP' Serial specimen #1, #2, #3, or #4: 1 TYPE CODE TESTS RESULT OUT OF RANGE REFERENCE UNITS LAB L501.0100 74-106 mg/dL Normal GLU 94 Result Comment: Please note revised GLUCOSE reference range effective 2017. LAB L501.1000 7-18 mg/dL High BUN 19 LAB L501.1100 0.55-1.02 mg/dL Normal CREAT,SERUM 0.94 Result Comment: The validity of the calculated GFR AND GFRAA in patients over 70 years has not been determined. Clinical correlation is essential. LAB L501.1110 >60 mL/min Normal EST GFR 63 Result Comment: Non- GFR Calc LAB L501.1115 >60 mL/min Normal EST GFR - AA 76 Result Comment: GFR Calc LAB L501.1300 10-20 RATIO High BUN/CRE 20.2 LAB L501.1500 6.4-8.2 g/dL T Normal PROT 7.5 LAB L501.1800 3.2-5.0 g/dL Normal ALB 4.0 LAB L501.1950 2.2-4.2 g/dL Normal GLOB 3.5 LAB L501.2000 0.9-2.4 RATIO Normal A/G 1.1 LAB L501.2200 8.5-10.1 mg/dL CA Normal 8.8 LAB L501.4100 15-37 U/L Low AST 9 LAB L501.4305 45-117 U/L Normal ALK P 73 LAB L501.4405 13-56 U/L Normal ALT 19 LAB L501.4600 0.20-1.00 mg/dL T Normal BILI 0.50 LAB L501.5300 136-145 mmol/L NA Normal 141 LAB L501.5600 3.5-5.1 mmol/L K Normal 3.8 LAB L501.5900 98-107 mmol/L CL Normal 106 LAB L501.6100 21.0-32.0 mmol/L Normal CO2 28.0 LAB L501.6200 5-15 Normal GAP 7 Performed By: #### L500.4050, L501.4010 #### [facility] [address] [place], [place], [id number] TROPONIN-I Collected: 02/01/2018 Status: F Source: [place] 1:37 PM [facility] REPOSITORY Order Comment: 'TROP' Serial specimen #1, #2, #3, or #4: 1 TYPE CODE TESTS RESULT OUT OF RANGE REFERENCE UNITS LAB L501.4010 <0.045 ng/mL Normal < 0.015 TROPONIN-I Result Comment: TROPONIN-I EXPECTED VALUES <0.045 Negative 0.045 - 0.590 Consistent with Cardiac Damage > OR = 0.600 Critical Value Not every elevated troponin is indicative of KS. These values should be used with clinical judgement in examining the patient's clinical picture for diagnosis. To establish a diagnosis of KS versus myocardial injury, there must be a demonstrated rise and/or fall in the troponin values, in addition to ischemic symptoms, EKG changes, new regional wall motion abnormality, and/or angiographical evidence. PLEASE NOTE: REFERENCE RANGES EDITED 17 Performed By: #### L500.4050, L501.4010 #### [facility] [address] [place], [place], [address] D-DIMER QUANTITATIVE Collected: 02/01/2018 Status: F Source: [place] (DVT/PE) 1:37 PM [facility] REPOSITORY TYPE CODE TESTS RESULT OUT OF RANGE REFERENCE UNITS LAB L300.8000 0.27-0.49 FEU/ug/m Low D-DIMER < 0.27 QUANT Result Comment: NORMAL D-Dimer level (<0.50) indicates no DVT or PE. Performed By: #### L300.8000 #### [facility] [address] [place], [address] CHEST PA AND LATERAL Observed: 02/01/2018 Status: F Source: [place] 1:36 PM [facility] REPOSITORY [facility] Imaging Services [address] [place] [address] Chest PA and Lateral MR#: [id number] Acct: [id number] Name: CINDY SOSA Rep #: [id number] : 1950 F 67 From: Antonella Forrest MD PCP: Aakash Matt Status: REG CLI Study: Chest PA and Lateral Date of Exam: 02/01/18 Exam# [id number] Ordering Dr: Aakash Matt DO STUDY: X-RAY CHEST REASON FOR EXAM: Female, 67 years old. Dyspnea. TECHNIQUE: PA and lateral views of the chest. COMPARISON: December 14, 2013 FINDINGS: The lungs are clear and expanded. There is no demonstrated pleural abnormality. Normal size heart. Normal mediastinum and teresa. Normal visualized pulmonary arteries. There is atherosclerotic calcification of the aortic arch. Normal visualized thoracic spine. Normal visualized ribs, clavicles, and shoulders. There is no demonstrated abnormality of the visualized soft tissue structures of the upper abdomen. RAD/Chest PA and Lateral IMPRESSION: No acute cardiopulmonary process. Electronically Signed: Antonella Forrest MD at 16:51 EDT Tel , Service support , CC: Aakash Matt; Aakash Matt DO Tacking Stitch Remover: Signed CNCO Observed: 01/16/2018 Status: COMPLETED Source: [place] 12:05 PM [facility] [place] REPOSITORY HNO ID: [id number] Author: Mammography Coordinator Service: (none) Author Type: Physician Type: Letter Filed: 01/17/2018 11:32 PM Note Text: January 16, 2018 PID: [id number] Cindy Sosa [address] [place] [address] Dear Ms. Sosa, We are pleased to inform you that the results of your recent breast imaging exam on 01/16/2018 are normal. Your mammogram demonstrates that you have dense breast tissue, which could hide abnormalities. Dense breast tissue, in and of itself, is a relatively common condition. Therefore, this information is not provided to cause undue concern; rather, it is to raise your awareness and promote discussion with your health care provider regarding the presence of dense breast tissue in addition to other risk factors. Early detection of cancer is very important. We also understand recommendations regarding breast cancer screening are controversial. Please discuss with your primary care provider which strategy is best for you and whether a mammogram is right for you. Your imaging studies and report will be kept on file at [facility] as part of your permanent medical record and are available for your continuing care. Thank you for allowing us to help in meeting your health care needs. Sincerely, Dr. Briones Interpreting Radiologist [facility] (Normal over 40) [facility] SCREENING Observed: 01/16/2018 Status: F Source: [place] 9:25 AM [facility] REPOSITORY * * *Final Report* * * DATE OF EXAM: Jan 16 2018 9:25AM [facility] 0581 - [facility] SCREENING / PROCEDURE REASON: Encounter for screening mammogram for malignant neoplasm of breast * * * * Physician Interpretation * * * * RESULT: #[id number] - [facility] SCREENING BILATERAL DIGITAL SCREENING MAMMOGRAM WITH CAD: 01/16/2018 HISTORY: Encounter For Screening Mammogram For Malignant Neoplasm Of Breast. RESULT: TECHNIQUE: The study was acquired using full field digital technology and interpreted from soft copy. Current study was also evaluated with a Computer Aided Detection (CAD). Comparison is made to exams dated: 11/30/2016 mammogram, 11/30/2015 mammogram, and 11/10/2014 mammogram - [facility]. The tissue of both breasts is heterogeneously dense. This may lower the sensitivity of mammography. No significant masses, calcifications, or other findings are seen in either breast. There has been no significant interval change. IMPRESSION: NEGATIVE There is no mammographic evidence of malignancy.A 1 year screening mammogram is recommended. Malena Briones M.D., mc/kristen:01/16/2018 12:05:35 Printing Film Stripper: Gladis MASCORRO(Tiki)(Dov), [facility] letter sent: Normal over 40 Mammogram BI-RADS: 1 Negative Multiple national specialty organizations have released breast cancer screening guidelines for women at average risk for developing breast cancer - guidelines that are based on both evidence and opinion, yet differ on when to start and how often to screen for breast cancer. With representation from Breast Imaging, Internal Medicine, Women's Health, Family Medicine, and Medical/Surgical Oncology, the [facility] has carefully reviewed the data and reached the following consensus: 1) All women should engage in shared decision-making with their providers to decide when to start and how often to screen; 2) All women should have the opportunity to start screening mammography at age 40; 3) For women ages 45-55, we recommend annual screening mammograms; 4) For women ages 55 and over, we support both the transition from an annual to a biennial interval if this aligns more with patient's values and preferences, or continuation with annual screening; 5) All women should discuss with their providers when to stop screening mammograms. Tacking Stitch Remover: Kristen Transcribe Date/Time: Jan 16 2018 8:40A Dictated by: MALENA HALEY MD This examination was interpreted and the report reviewed and electronically signed by: MALENA HALEY MD on Jan 16 2018 12:05PM EST [id number] Observed: 01/16/2018 Status: COMPLETED Source: [place] 8:35 AM [facility] REPOSITORY O ID: [id number] Author: Cindy Mascorro Service: (none) Author Type: (none) Type: Progress Notes Filed: 01/16/2018 8:36 AM Note Text: Radiology Service Progress Note PATIENT NAME: Cindy Sosa DATE OF SERVICE: January 16, 2018 TIME: 8:35 AM PATIENT IDENTITY VERIFICATION COMPLETED USING TWO (2) METHODS: Patient confirmed name verbally and Date of . PATIENT GENDER DATA: Female. status: : No status: NO. PATIENT RELEVANT IMPLANT DATA REVIEWED: Not Applicable RADIOLOGY DEPARTMENT: [facility] IV DATA: Not applicable SIGNED BY: Cindy Mascorro January 16, 2018 8:35 AM CBC W/DIFF, AUTOMATED Collected: 10/23/2017 Status: F Source: [place] 2:13 PM [facility] REPOSITORY TYPE CODE TESTS RESULT OUT OF RANGE REFERENCE UNITS LAB L100.1000 4.4-11.0 K/mm3 Normal WBC 5.6 LAB L100.1200 4.2-5.4 M/mm3 Normal RBC 4.21 LAB L100.1300 12.0-15.0 g/dl Normal HGB 13.0 LAB L100.1400 37-47 % Normal HCT 39.9 LAB L100.1500 81-99 fL Normal MCV 94.8 LAB L100.1600 27.0-32.0 pg Normal MCH 30.9 LAB L100.1700 32-36 g/gl Normal MCHC 32.6 LAB L100.1810 11.6-14.6 % Normal RDW CV 13.9 LAB L100.1820 35.1-43.9 fl High RDW SD 46.1 LAB L100.1900 150-450 K/mm3 Normal PLT 224 LAB L100.2000 6.2-12.0 fl Normal MPV 10.9 LAB L100.2100 47-70 % High NEUT% 74.0 LAB L100.2200 19-41 % Low LY% 18.0 LAB L100.2300 0-10 % Normal MONO% 6.7 LAB L100.2400 0-5 % Normal EO% 0.7 LAB L100.2500 0-1 % Normal BASO% 0.4 LAB L100.2550 0.0-0.9 % Normal IM GRAN % 0.200 Result Comment: IG% - Immature Granulocytes (promyelocytes, myelocytes and metamyelocytes) > 1% indicates that a LEFT SHIFT is Present. LAB L100.2620 2.0-7.7 X10 3/uL Normal Absolute Neut 4.1 LAB L100.2720 0.83-4.51 X10 3/ul Normal Absolute Lymph 1.00 Performed By: #### L100.0100 #### [facility] [address] [place], [address] COMPREHENSIVE METABOLIC Collected: 10/23/2017 Status: F Source: [place] 2:13 PM [facility] REPOSITORY TYPE CODE TESTS RESULT OUT OF RANGE REFERENCE UNITS LAB L501.0100 74-106 mg/dL Normal GLU 88 Result Comment: Please note revised GLUCOSE reference range effective 2017. LAB L501.1000 7-18 mg/dL Normal BUN 15 LAB L501.1100 0.55-1.02 mg/dL Normal CREAT,SERUM 1.02 Result Comment: The validity of the calculated GFR AND GFRAA in patients over 70 years has not been determined. Clinical correlation is essential. LAB L501.1110 >60 mL/min Low EST GFR 57 Result Comment: Non- GFR Calc LAB L501.1115 >60 mL/min Normal EST GFR - AA 69 Result Comment: GFR Calc LAB L501.1300 10-20 RATIO Normal BUN/CRE 14.7 LAB L501.1500 6.4-8.2 g/dL T Normal PROT 7.2 LAB L501.1800 3.2-5.0 g/dL Normal ALB 3.9 LAB L501.1950 2.2-4.2 g/dL Normal GLOB 3.3 LAB L501.2000 0.9-2.4 RATIO Normal A/G 1.2 LAB L501.2200 8.5-10.1 mg/dL CA Normal 8.8 LAB L501.4100 15-37 U/L Normal AST 17 LAB L501.4305 45-117 U/L Normal ALK P 71 LAB L501.4405 13-56 U/L Normal ALT 24 LAB L501.4600 0.20-1.00 mg/dL T Normal BILI 0.40 LAB L501.5300 136-145 mmol/L NA Normal 141 LAB L501.5600 3.5-5.1 mmol/L K Normal 4.3 LAB L501.5900 98-107 mmol/L CL Normal 104 LAB L501.6100 21.0-32.0 mmol/L Normal CO2 30.0 LAB L501.6200 5-15 Normal GAP 7 Performed By: #### L500.4050, L501.5200, L501.9520 #### [facility] [address] [place], [address] MAGNESIUM Collected: 10/23/2017 Status: F Source: [place] 2:13 PM [facility] REPOSITORY TYPE CODE TESTS RESULT OUT OF RANGE REFERENCE UNITS LAB L501.5200 1.6-2.6 mg/dL Normal MG 2.5 Performed By: #### L500.4050, L501.5200, L501.9520 #### [facility] [address] [place], [address] THYROID STIM HORMONE Collected: 10/23/2017 Status: F Source: [place] (TSH) 2:13 PM [facility] REPOSITORY TYPE CODE TESTS RESULT OUT OF RANGE REFERENCE UNITS LAB L501.9520 0.358-3.74 uIU/mL Normal TSH 2.71 Performed By: #### L500.4050, L501.5200, L501.9520 #### [facility] [address] [place], [address] ALLERGIES ALLERGIES DATE TYPE / CODE NAME / CODE REACTION SEVERITY SOURCE 02/07/2018 Drug sulfamethoxazole/F Nausea Unknown [place] Allergy/416 [id number](RXNORM) [facility] 211109([facility] ED CT) Repository 02/07/2018 Drug trimethoprim/F0060 Nausea Unknown [place] Allergy/416 30923(RXNORM) [facility] 890772([facility] ED CT) Repository 11/30/2015 DRUG HYDROCODONE GI UPSET [facility] INGREDI/419 [facility] 210011(SN Repository ED CT) 06/09/2006 DRUG/757058 SULFAMETHOXAZOLE-T GI UPSET [facility] 003(SNOMED RIMETHOPRIM [address]) Repository ENCOUNTERS ENCOUNTERS ADMIT/DISCHARGE ACCOUNT ADMITTING ENCOUNTER LOCATION SOURCE NUMBER CLASS 04/18/2018/04/18/20 [id number] RADHA CURRIE Ambulatory [address] Repository 04/06/2018/04/09/20 [id number] Ambulatory [address] Repository 04/02/2018 [id number] Ambulatory [facility] ing:US Repository 02/09/2018 [id number] Ambulatory [facility] ing:CVS Repository 02/09/2018 [id number] Ambulatory [facility] Repository 02/07/2018/02/08/20 [id number] Emergency [address] ing:ED Repository 02/01/2018 [id number] Ambulatory [facility] ing:MTLAB Repository 01/16/2018/01/17/20 [id number] Ambulatory [address] Repository 11/07/2017 [id number] Ambulatory [facility] ing:PSN Repository 11/07/2017 [id number] Ambulatory BMSBuilding:[facility] Repository 10/23/2017 [id number] Ambulatory [facility] ing:BFHLAB Repository PAYERS PAYERS ENCOUNTER GUARANTOR PAYER SUBSCRIBER SOURCE 04/02/2018 [place] Primary Insurance:GLORIA Hilton [id number] MCRPolicy Number: DILYARDDOB: [facility] MEBJDQJTEffective [id number] Date:3175-28-54QA BOX Repository [address] [address]Hql: [phone]: [phone] () 04/02/2018 Secondary NOT GIVENUNK [place] Insurance:SELF PAY Community INSURANCEPolicy Number: Hospital Effective Repository Date:2018-03-26 02/09/2018 [place] Primary Insurance:GLORIA Hilton [id number] MCRPolicy Number: DILYARDDOB: [facility] MEBJDQJTEffective [id number] Medical Center Date:5599-54-39AL BOX Repository [address] [address]Hxs: [phone]: [phone] () 02/09/2018 Secondary NOT GIVENUNK [place] Insurance:SELF PAY Community INSURANCEPolicy Number: Hospital Effective Repository Date:2018-02-05 02/09/2018 [facility] Primary Insurance:AETNA CINDY Dotson [place] [id number] MCRPolicy Number: DILYARDDOB: [facility] BJDQJMARY ANNffeshyam [id number] Medical Center Date:3316-45-90WF BOX Repository [address] [place] [address]Rno: [id number]: [phone] () 02/09/2018 Secondary NOT GIVENUNK [place] Insurance:SELF PAY Community INSURANCEPolicy Number: Hospital Effective Repository Date:2018-02-09 02/07/2018 [facility] Primary Insurance:AETNA CINDY A [place] [id number] MCRPolicy Number: DILYARDDOB: [facility] BJDQJMARY ANNffeshyam [id number] Medical Center Date:9717-53-91LC BOX Repository [address] [address]Hst: [phone]: [phone] () 02/07/2018 Secondary NOT GIVENUNK [place] Insurance:SELF PAY Community INSURANCEPolicy Number: Hospital Effective Repository Date:2018-02-07 02/01/2018 [place] Primary Insurance:AETNA CINDY A [place] [id number] MCRPolicy Number: DILYARDDOB: [facility] BJDQJTEffeshyam [id number] Date:4743-54-67QY BOX Repository [address] [address]Gej: [phone]: [phone] () 02/01/2018 Secondary NOT GIVENUNK [place] Insurance:SELF PAY Community INSURANCEPolicy Number: Hospital Effective Repository Date:2018-02-01 11/07/2017 [place] Primary Insurance:AETNA CINDY A [place] [id number] MCRPolicy Number: DILYARDDOB: [facility] BJDQJTEffeshyam [id number] County Memorial Hospital Date:6731-30-24JW BOX Repository [address] [place] [address]Eia: [phone]: [phone] (HP) 11/07/2017 Secondary NOT GIVENUNK [place] Insurance:SELF PAY Community INSURANCEPolicy Number: Hospital Effective Repository Date:2017-11-02 11/07/2017 [place] Primary Insurance:AETNA CINDY A [place] [id number] MCRPolicy Number: DILYARDDOB: [facility] BJDQJTEffective [id number] County Memorial Hospital Date:4217-32-21ZU BOX Repository [facility] [id number] [place] [address]Bgv: [phone]: [phone] (HP) 11/07/2017 Secondary NOT GIVENUNK [place] Insurance:SELF PAY Community INSURANCEPolicy Number: Hospital Effective Repository Date:2017-11-07 10/23/2017 [place] Primary Insurance:AETNA CINDY A [place] [id number] MCRPolicy Number: DILYARDDOB: [facility] MEBJDQJTEffective [id number] County Memorial Hospital Date:9932-18-89NK BOX Repository [facility] [id number] [place] [address]Obc: [id number]: [phone] (HP) 10/23/2017 Secondary NOT GIVENUNK [place] Insurance:SELF PAY Community INSURANCEPolicy Number: Hospital Effective Repository Date:2017-10-23
== END ==
PROVIDERS: Family Provider Family Medicine; PCP Family Medicine; Referring Provider Family Medicine; Visit Provider Family Medicine
DX: R68.81 Early satiety (principal); R10.9 Unspecified abdominal pain
CPT/HCPCS: 76700

== ENCOUNTER → 2018-05-25 08:12 | Outpatient (CLI) | payer MEDICARE, SELFPAY ==
--- NOTE | 2018-05-25 08:24 | CT_ITS ---
STUDY: CT ABDOMEN AND PELVIS WITH CONTRAST REASON FOR EXAM: Female, 67 years old. Epigastric pain for 4 months RADIATION DOSAGE (If Supplied By Facility): CTDIvol = ( 10.43 ) mGy, DLP = ( 522.57 ) mGycm TECHNIQUE: Transaxial images were obtained from the dome of the diaphragm to the symphysis pubis with oral contrast. 100 ml of Isovue 300 contrast was administered. Sagittal and coronal images were reconstructed. Individualized dose optimization techniques were used for this CT. COMPARISON: None. FINDINGS: There are granulomata in each lung base. The visualized portions of the heart are within normal limits. 1.6 cm low density lesion at the posterior right hepatic lobe (segment 7) with mildly irregular margins, favor hemangioma. Normal gallbladder and extrahepatic biliary system. Normal spleen. Normal pancreas. Normal bilateral adrenal glands. Normal right kidney. Normal left kidney. Normal visualized stomach. Normal small intestine. Normal colon. There is non-visualization of the appendix. There is diffuse atherosclerotic calcification of the abdominal aorta with elongation and tortuosity, but without a demonstrated aneurysm. Normal inferior vena cava. Normal retroperitoneum. Normal urinary bladder. There is absence of the uterus consistent with a prior hysterectomy. There is a tiny umbilical hernia containing fat. Normal osseous structures. CT/Abdomen/Pelvis WITH Contrast IMPRESSION: 1. No inflammatory process, mass or bowel obstruction. 2. Probable hemangioma of the right hepatic lobe. 3. Hysterectomy. Nonvisualized appendix. Electronically Signed: Steven Hinojosa MD at 7:55 EST , Service support ,
[2018-05-25 08:36] LABS: CREATININE FINGERSTICK 0.9 mg/dL (0.55-1.02); EGFR FINGERSTICK > 60.0000 mL/min (>60)
== END ==
PROVIDERS: Family Provider Family Medicine; PCP Family Medicine; Referring Provider Family Medicine; Visit Provider Family Medicine
DX: R68.81 Early satiety (principal); R10.9 Unspecified abdominal pain
CPT/HCPCS: 74177; Q9967

== ENCOUNTER → 2021-11-03 | Outpatient (CLI) | payer MEDICARE, SELFPAY ==
--- NOTE | 2021-11-03 08:42 | CDU_ITS ---
Reason For Study: Amaurosis fugax Rt. Velocities/BP Lt. Velocities/BP Prox CCA 65.6/12.1 cm/sec. Prox CCA 73/16.3 cm/sec. Mid CCA 56.5/14.7 cm/sec. Mid CCA 61.7/16.3 cm/sec. Dist CCA 49.9/12.1 cm/sec. Dist CCA 55.1/15.4 cm/sec. Prox ICA 45.6/12.6 cm/sec. Prox ICA 54.1/17.3 cm/sec. Mid ICA 53.2/14.5 cm/sec. Mid ICA 63.6/23 cm/sec. Dist ICA 59.8/23 cm/sec. Dist ICA 79.3/21.8 cm/sec. Rt. ICA/CCA = 1.1. Lt. ICA/CCA = 1.3. Prox ECA 63/9.5 cm/sec. Prox ECA 63.6/10.7 cm/sec. Rt. Vert. 30.1/8.8 cm/sec. Lt. Vert. 46.6/17.3 cm/sec. Right Extracranial There is homogeneous, smooth atherosclerotic plaque noted in the right common carotid artery. There is homogeneous, smooth atherosclerotic plaque noted in the right internal carotid artery. There is intimal thickening but no significant atherosclerotic plaque noted in the right external carotid artery. Antegrade flow is noted in the right vertebral artery. Left Extracranial There is homogeneous, smooth atherosclerotic plaque noted in the left common carotid artery. There is heterogeneous, smooth atherosclerotic plaque noted in the left internal carotid artery. There is heterogeneous, irregular atherosclerotic plaque noted in the left external carotid artery. Antegrade flow is noted in the left vertebral artery. Procedure Carotid Duplex 26208. This is a Carotid Duplex examination using B-mode, color flow and specral Doppler. Exam performed in department. VL/Carotid Duplex Ultrasound Interpretation Summary Mild (<50%) stenosis right extracranial internal carotid. Mild (<50%) stenosis left extracranial internal carotid. Flow within the vertebral arteries is antegrade bilaterally. Ordering Physician: Kevin Alves Referring Physician: Aakash Matt Performed By: Suly Bowles RVT
== END | disposition home or self-care (01) ==
LOC: CVS 08:40
PROVIDERS: PCP Family Medicine; Referring Provider Ophthalmology; Visit Provider Ophthalmology
DX: I65.23 Occlusion and stenosis of bilateral carotid arteries (principal); H53.15 Visual distortions of shape and size
CPT/HCPCS: 93880

== ENCOUNTER → 2022-11-04 | Outpatient (CLI) | payer MEDICARE, SELFPAY ==
--- NOTE | 2022-11-04 11:30 | RAD_ITS ---
EXAM: XR LEFT SHOULDER COMPLETE, 2 OR MORE VIEWS CLINICAL INDICATION: LEFT ANTERIOR SHOULDER PAIN TECHNIQUE: 4 views. COMPARISON: No relevant prior studies available. FINDINGS: BONES/JOINTS: Unremarkable. No acute fracture. No subluxation. Normal alignment. Preservation of the joint space. No sclerotic or destructive changes observed. SOFT TISSUES: Unremarkable. No soft tissue swelling or gas. No radiopaque foreign body. RAD/Shoulder min 2 Views IMPRESSION: Negative left shoulder x-rays. Electronically Signed: Mali Sellers MD at 8:51 EDT ,
[2022-11-04 12:06] LABS: Absolute Lymphocyte Count 0.76 X10^3/uL (0.83-4.51); Absolute Neutrophil Count 3.1 X10^3/uL (2.0-7.7); Basophil# 0.04 X10^3/uL; Basophil% 0.9 % (0-1); Eosinophil# 0.06 X10^3/uL; Eosinophils% 1.4 % (0-5); Hematocrit 37.9 % (37-47); Hemoglobin 12.2 g/dL (12.0-15.0); Lymphocyte # 0.76 X10^3/ul (0.83-4.51); Lymphocyte % 17.4 % (19-41); Mean Corp Hgb Conc 32.2 g/dL (32-36); Mean Corpuscular Hgb 31.3 pg (27.0-32.0); Mean Corpuscular Volume 97.2 fL (81-99); Mean Platelet Vol. 10.7 fl (6.2-12.0); Monocyte# 0.34 X10^3/uL; Monocyte% 7.8 % (0-10); NRBC Flagged by Analyzer 0 % (0-5); Neutrophil # 3.13 X10^3/uL (2.7-7.7); Neutrophil % 71.8 % (47-70); Platelet Count 212 K/mm3 (150-450); RBC Distribution Width CV 13.5 % (11.6-14.6); RBC Distribution Width SD 48.6 fl (35.1-43.9); White Blood Count 4.4 K/mm3 (4.4-11.0)
[2022-11-04 13:12] LABS: ALB/GLOB Ratio 1.2 RATIO (0.9-2.4); AST(SGOT) 29 U/L (15-37); Alanine Aminotransfer ALT/SGPT 32 U/L (13-56); Albumin, Serum 3.8 g/dL (3.2-5.0); Alkaline Phosphatase 66 U/L (45-117); Anion Gap 5 (5-15); BUN 16 mg/dL (7-18); BUN/Creat Ratio 19.9 RATIO (10-20); Calcium,Total 8.8 mg/dL (8.5-10.1); Chloride 106 mmol/L (98-107); Cholesterol 228 mg/dL (200); EST Glomerular Filtration Rate 74 mL/min (>60); Est Glom Filt Rate - Afr Amer 90 mL/min (>60); Globulin 3.1 g/dL (2.2-4.2); Glucose 93 mg/dL (74-106); High Density Lipoprotein 112 mg/dL; Potassium 4.3 mmol/L (3.5-5.1); Protein, Total 6.9 g/dL (6.4-8.2); Sodium Level 140 mmol/L (136-145); Triglycerides 46 mg/dL; Very Low Density Lipoprotein 9 mg/dL (5-40)
== END | disposition home or self-care (01) ==
LOC: LAB 11:13
PROVIDERS: PCP Family Medicine; Visit Provider Family Medicine
DX: E78.5 Hyperlipidemia, unspecified (principal); R74.01 Elevation of levels of liver transaminase levels; R53.83 Other fatigue
CPT/HCPCS: 36415; 73030; 80053; 80061; 85025